=== PATIENT | male | born 1995 | race Caucasian/White ===

== ENCOUNTER 2021-01-03 21:03 | Emergency (ER) | payer OTHER ==
[~2021-01-03] VITALS: Ht 172.7 cm; Wt 84.2 kg
[2021-01-03 21:04] VITALS: BP 140/82
[2021-01-03 21:58] LABS: HEMATOCRIT 43.2 % (42.0-52.0); HEMOGLOBIN 14.4 g/dl (13.5-17.5); MEAN CORPUSCULAR HGB CONC 33.3 g/dl (32.0-36.5); PLATELET COUNT, AUTOMATED 186 10^3/uL (150-450); WHITE BLOOD COUNT 7.3 10^3/uL (4.0-10.0)
[2021-01-03 22:26] LABS: ALBUMIN 4.5 GM/DL (3.2-5.2); ALT/SGPT 66 U/L (12-78); BILIRUBIN,DIRECT < 0.1 MG/DL (0.0-0.2); BILIRUBIN,TOTAL 0.3 MG/DL (0.2-1.0); BLOOD UREA NITROGEN 12 MG/DL (7-18); CALCIUM LEVEL 9.1 MG/DL (8.5-10.1); CARBON DIOXIDE LEVEL 31 MEQ/L (21-32); CHLORIDE LEVEL 105 MEQ/L (98-107); CREATININE FOR GFR 0.98 MG/DL (0.70-1.30); GLOMERULAR FILTRATION RATE > 60.0 (>60); GLUCOSE, FASTING 99 MG/DL (70-100); LIPASE 149 U/L (73-393); POTASSIUM SERUM 4.3 MEQ/L (3.5-5.1); SODIUM LEVEL 139 MEQ/L (136-145); TOTAL PROTEIN 7.6 GM/DL (6.4-8.2)
[2021-01-03 22:41] LABS: ATYPICAL LYMPH 2 % (0-5); BASOPHILS 1 % (0-1); EOSINOPHILS 11 % (0-3); LYMPHOCYTES 34 % (16-44); MONOCYTES 5 % (0-5); NEUTROPHILS 47 % (28-66); PLATELET ESTIMATE NORMAL (NORMAL)
[2021-01-03] MEDS ORDERED: PROC1AER16 PR (23:06)
[2021-01-03 23:43] LABS: INR 0.93; PROTHROMBIN TIME 12.7 SECONDS (12.5-14.3)
--- NOTE | 2021-01-04 00:06 | REPVR ---
PROCEDURE INFORMATION: Exam: XR Complete Acute Abdomen Series Exam date and time: 01/03/2021 11:31 PM Age: 25 years old Clinical indication: Abdominal pain; Acute; Additional info: Gi bleed TECHNIQUE: Imaging protocol: XR complete acute abdomen series, including 2 or more views of the abdomen and a single view chest. COMPARISON: No relevant prior studies available. FINDINGS: Lungs: Normal. No consolidation. Pleural spaces: Normal. No pleural effusions. No pneumothorax. Heart/Mediastinum: Normal. No cardiomegaly. Gastrointestinal tract: Mild gas throughout the GI tract without abnormal dilatation. Gas extends to the rectosigmoid. No abnormal air-fluid levels. Intraperitoneal space: No free air. Bones/joints: Normal. No acute fracture. Soft tissues: Normal. IMPRESSION: 1. Negative chest. 2. Negative abdomen with mild gas which is within normal limits. Electronically signed by: Rey Hernandez On 01/04/2021 00:05:48 AM
== END 2021-01-04 00:03 | disposition home or self-care (01) ==
LOC: M ED 21:03
DX: K92.2 Gastrointestinal hemorrhage, unspecified (principal)

== ENCOUNTER 2021-02-09 15:11 | Emergency (ER) | payer OTHER ==
[~2021-02-09] VITALS: Ht 172.7 cm; Wt 85.3 kg
[~2021-02-09 15:11] MED LIST: PROC1AER16 PR
[2021-02-09 15:12] VITALS: BP 145/86
--- NOTE | 2021-02-09 15:49 | REP ---
INDICATION: constipation COMPARISON: None. TECHNIQUE: Supine view of the abdomen and pelvis. FINDINGS: Bowel gas pattern is nonspecific and without obstruction or perforation. No significant fecal stasis. No organomegaly. No abnormal calcifications. Skeletal structures intact. IMPRESSION: Normal abdominal radiograph. <Electronically signed by Tadeo Kenney > 02/09/21 [id number]
[2021-02-09 15:59] LABS: BASO # 0.1 10^3/uL (0.0-0.2); BASO % 1.3 % (0.0-1.0); EOS # 0.2 10^3/uL (0.0-0.5); EOS % 4.3 % (0.0-3.0); HEMATOCRIT 43.9 % (42.0-52.0); LYMPH % 37.2 % (24.0-44.0); MEAN CORPUSCULAR HEMOGLOBIN 30.2 pg (27.0-33.0); MEAN CORPUSCULAR HGB CONC 34.2 g/dl (32.0-36.5); MEAN CORPUSCULAR VOLUME 88.5 fl (80.0-96.0); MONO # 0.5 10^3/uL (0.0-0.8); MONO % 9.1 % (2.0-8.0); NEUTROPHILS # 2.6 10^3/uL (1.5-8.5); NEUTROPHILS % 47.9 % (36.0-66.0); PLATELET COUNT, AUTOMATED 208 10^3/uL (150-450); RED BLOOD COUNT 4.96 10^6/uL (4.30-6.10); WHITE BLOOD COUNT 5.4 10^3/uL (4.0-10.0)
[2021-02-09 16:29] LABS: ALBUMIN 4.6 GM/DL (3.2-5.2); ALT/SGPT 43 U/L (12-78); BILIRUBIN,TOTAL 0.4 MG/DL (0.2-1.0); BLOOD UREA NITROGEN 11 MG/DL (7-18); CALCIUM LEVEL 8.6 MG/DL (8.5-10.1); CARBON DIOXIDE LEVEL 28 MEQ/L (21-32); CHLORIDE LEVEL 107 MEQ/L (98-107); GLOMERULAR FILTRATION RATE > 60.0 (>60); GLUCOSE, FASTING 114 MG/DL (70-100); POTASSIUM SERUM 3.7 MEQ/L (3.5-5.1); SODIUM LEVEL 140 MEQ/L (136-145); TOTAL PROTEIN 7.4 GM/DL (6.4-8.2)
[2021-02-09] MEDS ORDERED: PROC1AER16 PR (16:34)
== END 2021-02-09 17:10 | disposition home or self-care (01) ==
LOC: M ED 15:11
DX: K64.8 Other hemorrhoids (principal); K64.4 Residual hemorrhoidal skin tags

== ENCOUNTER 2021-04-11 12:26 | Emergency (ER) | payer OTHER ==
[~2021-04-11] VITALS: Ht 172.7 cm; Wt 86.9 kg
[2021-04-11] MEDS ORDERED: FLUORESCEIN OPHTH 1 MG STRIP OS ONE (16:15)
[2021-04-11] MEDS ORDERED: TETRACAINE 0.5% OPHTH SOLN 4ML OS ONE (16:15)
[2021-04-11] MEDS ORDERED: KETOROLAC TROMETHAMINE 10 MG TAB PO ONE (16:30)
[2021-04-11] MEDS ORDERED: OCUF0.25 OS (16:31)
[2021-04-11 16:49] VITALS: BP 135/68
== END 2021-04-11 16:45 | disposition home or self-care (01) ==
LOC: M ED 12:26
DX: S05.02XA Injury of conjunctiva and corneal abrasion without foreign body, left eye, initial encounter (principal); X58.XXXA Exposure to other specified factors, initial encounter; Y92.9 Unspecified place or not applicable; Y93.9 Activity, unspecified; Y99.1 Military activity

== ENCOUNTER 2021-07-02 10:03 | Emergency (ER) | payer OTHER ==
[~2021-07-02] VITALS: Ht 172.7 cm; Wt 86.3 kg
[~2021-07-02 10:03] MED LIST changes: +OCUF0.25 OS
--- OUTSIDE RECORDS SUMMARY | 2021-07-02 10:08 | CCD ---
Author Author [facility] Address Unknown Phone Unavailable Care Team Providers Care Production Associate Name Role Phone Feli STOUT Unavailable Unavailable LETTIERE, A FARAZ PA Unavailable Unavailable LETTIERE, A FARAZ PA Unavailable Unavailable LETTIERE, A FARAZ PA Unavailable Unavailable LETTIERE, A FARAZ PA Unavailable Unavailable LETTIERE, A FARAZ PA Unavailable Unavailable LETTIERE, A FARAZ PA Unavailable Unavailable LETTIERE, A FARAZ PA Unavailable Unavailable LETTIERE, A FARAZ PA Unavailable Unavailable LETTIERE, A FARAZ PA Unavailable Unavailable LETTIERE, A FARAZ PA Unavailable Unavailable LETTIERE, A FARAZ PA Unavailable Unavailable LETTIERE, A FARAZ PA Unavailable Unavailable LETTIERE, A FARAZ PA Unavailable Unavailable LETTIERE, A FARAZ PA Unavailable Unavailable LETTIERE, A FARAZ PA Unavailable Unavailable LETTIERE, A FARAZ PA Unavailable Unavailable LETTIERE, A FARAZ PA Unavailable Unavailable LETTIERE, A FARAZ PA Unavailable Unavailable LETTIERE, A FARAZ PA Unavailable Unavailable LETTIERE, A FARAZ PA Unavailable Unavailable LETTIERE, A FARAZ PA Unavailable Unavailable LETTIERE, A FARAZ PA Unavailable Unavailable LETTIERE, A FARAZ PA Unavailable Unavailable LETTIERE, A FARAZ PA Unavailable Unavailable LETTIERE, A FARAZ PA Unavailable Unavailable LETTIERE, A FARAZ PA Unavailable Unavailable LETTIERE, A FARAZ PA Unavailable Unavailable LETTIERE, A AFRAZ PA Unavailable Unavailable LETTIERE, A FARAZ PA Unavailable Unavailable LETTIERE, A FARAZ PA Unavailable Unavailable LETTIERE, A FARAZ PA Unavailable Unavailable Feli DAMON MD Unavailable Unavailable Feli DAMON MD Unavailable Unavailable Feli DAMON MD Unavailable Unavailable Feli DAMON MD Unavailable Unavailable Feli DAMON MD Unavailable Unavailable Feli DAMON MD Unavailable Unavailable Feli DAMON MD Unavailable Unavailable ZULICK, C ESTELLE MD Unavailable Unavailable ZULICK, C ESTELLE MD Unavailable Unavailable ZULICK, C ESTELLE MD Unavailable Unavailable ZULICK, C ESTELLE MD Unavailable Unavailable ZULICK, C ESTELLE MD Unavailable Unavailable ZULICK, C ESTELLE MD Unavailable Unavailable ZULICK, C ESTELLE MD Unavailable Unavailable ZULICK, C ESTELLE MD Unavailable Unavailable ZULICK, C ESTELLE MD Unavailable Unavailable ZULICK, C ESTELLE MD Unavailable Unavailable ZULICK, C ESTELLE MD Unavailable Unavailable ZULICK, C ESTELLE MD Unavailable Unavailable ZULICK, C ESTELLE MD Unavailable Unavailable ZULICK, C ESTELLE MD Unavailable Unavailable ZULICK, C ESTELLE MD Unavailable Unavailable ZULICK, C ESTELLE MD Unavailable Unavailable ZULICK, C ESTELLE MD Unavailable Unavailable ZULICK, C ESTELLE MD Unavailable Unavailable ZULICK, C ESTELLE MD Unavailable Unavailable ZULICK, C ESTELLE MD Unavailable Unavailable ZULICK, C ESTELLE MD Unavailable Unavailable ZULICK, C ESTELLE MD Unavailable Unavailable ZULICK, C ESTELLE MD Unavailable Unavailable ZULICK, C ESTELLE MD Unavailable Unavailable ZULICK, C ESTELLE MD Unavailable Unavailable MIGUELITO, A WENDY MD Unavailable Unavailable MIGUELITO, A WENDY MD Unavailable Unavailable MIGUELITO, A WENDY MD Unavailable Unavailable MIGUELITO, A WENDY MD Unavailable Unavailable MIGUELITO, A WENDY MD Unavailable Unavailable MIGUELITO, A WENDY MD Unavailable Unavailable MIGUELITO, A WENDY MD Unavailable Unavailable MIGUELITO, A WENDY MD Unavailable Unavailable MIGUELITO, A WENDY MD Unavailable Unavailable MIGUELITO, A WENDY MD Unavailable Unavailable DAY, JORDAN Unavailable Unavailable Re-disclosure Warning The records that you are about to access may contain information from federally-assisted alcohol or drug abuse programs. If such information is present, then the following federally mandated warning applies: This information has been disclosed to you from records protected by federal confidentiality rules (42 CFR part 2). The federal rules prohibit you from making any further disclosure of this information unless further disclosure is expressly permitted by the written consent of the person to whom it pertains or as otherwise permitted by 42 CFR part 2. A general authorization for the release of medical or other information is NOT sufficient for this purpose. The Federal rules restrict any use of the information to criminally investigate or prosecute any alcohol or drug abuse patient.The records that you are about to access may contain highly sensitive health information, the redisclosure of which is protected by Article 27-F of the [facility] Public Health law. If you continue you may have access to information: Regarding HIV / AIDS; Provided by facilities licensed or operated by the [facility] Office of Mental Health; or Provided by the [facility] Office for People With Developmental Disabilities. If such information is present, then the following [facility] mandated warning applies: This information has been disclosed to you from confidential records which are protected by state law. State law prohibits you from making any further disclosure of this information without the specific written consent of the person to whom it pertains, or as otherwise permitted by law. Any unauthorized further disclosure in violation of state law may result in a fine or fdc sentence or both. A general authorization for the release of medical or other information is NOT sufficient authorization for further disc losure. Allergies and Adverse Reactions Type Description Substance Reaction Status Data Source(s ) No Known Drug Allergies No Known Drug Allergies [facility] No Known Environmental Allergies No Known Environmental Al lergies [facility] No Known Food Allergies No Known Food Allergies [facility] No Known Allergies No Known Allergies [facility] Encounters Encounter Providers Location Date Indications Data Source(s ) Outpatient Attender: JORDAN DAYConsultant: WENDY BECKHAM MD 06/26/2021 07:57:16 AM EST - 06/27/2021 05:50:00 AM [facility] Patient discharged. Outpatient Attender: RENATE Allenant: WENDY HSU MD 05/02/2021 07:52:27 AM EDT - 05/03/2021 09:26:00 AM EDT [facility] Patient discharged. Outpatient Attender: RENATE Allenant: WENDY HSU MD 05/01/2021 12:19:15 PM EDT - 05/02/2021 10:10:00 AM EDT [facility] Patient discharged. Outpatient Attender: ESTELLE DAMON MD 2020 09:49:00 AM EDT - 04/05/2021 09:49:00 AM T [facility] Office Visit Attender: ESTELLE DAMON MD Family Practice 2020 09:45:00 AM [facility] Outpatient Attender: FARAZ maria 03/23/2021 02:35:[address] [facility] ([facility]) Outpatient Attender: ESTELLE DAMON MDConsultant: WENDY COOMBS MD 03/17/2021 08:12:21 AM EDT - 03/20/2021 11:00:00 AM EDT [facility] Patient discharged. Outpatient Attender: ESTELLE DAMON MDConsultant: WENDY COOMBS MD 03/08/2021 06:57:47 AM EDT - 03/09/2021 04:04:00 PM EDT [facility] Patient discharged. Outpatient Attender: ESTELLE DAMON MD 2020 09:07:00 AM EDT - 02/24/2021 09:07:00 AM EDT [facility] Outpatient Attender: RENATE STOUTConsultant: WENDY HSU MD 11/29/2020 06:40:11 AM EDT - 11/30/2020 12:31:00 PM EDT [facility] Patient discharged. Outpatient Attender: RENATE Prasadltant: WENDY HSU MD 11/28/2020 07:16:29 AM EDT - 11/29/2020 08:43:00 AM EDT [facility] Patient discharged. Outpatient Attender: ESTELLE DAMON MD 2019 09:01:00 AM EDT - 05/20/2020 09:01:00 AM EDT [facility] Immunizations Vaccine Date Status Description Data Source(s) COVID-19 VACCINE Pfizer 11/10/2020 12:00:00 AM EDT completed [facility] Vaccine Series Complete: YESThis Data wa s Submitted to [facility] Via [employer]. COVID-19 VACCINE Pfizer 10/20/2020 12:00:00 AM EST completed [facility] Vaccine Series Complete: YESThis Data wa s Submitted to [facility] Via [employer]. Medications Medication Brand Name Start Date Product Form Dose Route Admi nistrative Instructions Pharmacy Instructions Status Indications Reaction Description Data Source(s) Triamcinolone Acetonide 1 MG/ML Topical Cream Triamcinolone Acetonide 03/23/2021 12:00:00 AM EDT active [facility] ([facility]) Doxycycline Monohydrate 100 MG Oral Capsule Doxycycline [place] hydrate 03/23/2021 12:00:00 AM EDT ORAL active [facility] ([facility]) No Active Medications 03/23/2021 12:00:00 AM EDT completed [facility] ([facility]) Docusate Sodium 100 MG Oral Capsule [Colace] Colace 12:00:00 AM EDT ORAL active [facility] ( [facility]) WHEAT DEXTRIN 3500 MG Oral Powder [Benefiber] Benefiber 02/24/2021 12:00:00 AM EDT active [facility] ([facility]) POLYETHYLENE GLYCOL 3350 142 MG/ML Oral Solution [Miralax] M iralax 02/24/2021 12:00:00 AM EDT active [facility] ([facility]) Bisacodyl 5 MG Delayed Release Oral Tablet [Dulcolax] Dulcol ax 02/24/2021 12:00:00 AM EDT active M [facility] ([facility]) Insurance Providers Payer name Policy type / Coverage type Policy ID Covered republican ID Covered republican's relationship to gibson Policy Gibson Plan Information [facility] ACTIVE DUTY [id number] [facility] [place] [id number] 18 [id number] [facility] [place] [id number] 18 [id number] [facility] [place] [id number] [id number] [facility] [place] -[place]/P [id number] [id number] [facility] [place] [id number] 18 [id number] [facility] [place] [id number] 18 [id number] [facility] Commercial [id number] Self [id number] Problems, Conditions, and Diagnoses Code Display Name Description Problem Type Effective Dates Data Source(s) N28297 Bunion of left foot Bunion of left foot Diagnosis 0 05/03/2021 06:30:00 AM [facility] [id number] Pain in left foot Pain in left foot Diagnosis 05/02/2021 09:40:00 AM [facility] Z800 Family history of malignant neoplasm of digestive organs Family history of malignant neoplasm of digestive organs Diagnosis 03/20/2021 08:45:00 A M [facility] K625 Hemorrhage of anus and rectum Hemorrhage of anus and r ectum Diagnosis 03/20/2021 08:45:00 AM [facility] K5900 Constipation, unspecified Constipation, unspecified Di agnosis 03/20/2021 08:45:00 AM [facility] K648 Other hemorrhoids Other hemorrhoids Diagnosis 03/20/2021 08:45:00 AM [facility] S00837 Encounter for other preprocedural examin ation Encounter for other preprocedural examination Diagnosis 03/09/2021 03:35:[address] [facility] D13075 Nicotine dependence, unspecified, uncomp licated Nicotine dependence, unspecified, uncomplicated Diagnosis 11/30/2020 08:00:00 AM [facility] M2041 Other hammer toe(s) (acquired), right fo ot Other hammer toe(s) (acquired), right foot Diagnosis 11/30/2020 08:00:00 AM [facility] T20083 Bunionette of right foot Bunionette of right foot Diag nosis 11/30/2020 08:00:00 AM [facility] [id number] Bunion of right foot Bunion of right foot Diagnosis 11/30/2020 08:00:00 AM [facility] Z1152 ENCOUNTER FOR SCREENING FOR COVID-19 ENCOUNTER F OR SCREENING FOR COVID-19 Diagnosis 11/29/2020 07:18:00 AM [facility] N62 Hypertrophy of breast Hypertrophy of breast Diagnosis 05/20/2020 09:01:00 AM [facility] Surgeries/Procedures Procedure Description Date Indications Data Source(s) OFFICE OUTPATIENT NEW 30 MINUTES 03/23/2021 12:00:00 A M [facility]) OFFICE OUTPATIENT VISIT 15 MINUTES 02/24/2021 12:00:00 AM EDT [facility] ([facility]) Results ID Date Data Source [id number] 06/21/2021 09:35:00 AM EST [facility] Name Value Range Interpretation Code Description Data Jillian rce(s) Supporting Document(s) SARS coronavirus 2 RNA Not Detected [facility] [place] This lab was ordered by [facility] and reported by [facility]. ID Date Data Source [id number] 03/15/2021 11:13:00 AM EDT [facility] Name Value Range Interpretation Code Description Data Jillian rce(s) Supporting Document(s) SARS coronavirus 2 RNA Not Detected [facility] [place] This lab was ordered by [facility] and reported by [facility]. ID Date Data Source [id number] 05/21/2020 08:26:00 PM EDT [facility] Name Value Range Interpretation Code Description Data Jillian rce(s) Supporting Document(s) Testosterone [Mass/volume] in Serum or Plasma 418 ng/dL [id number] [facility] Adult male reference interval is based o n a population ofhealthy nonobese males (BMI <30) between 19 and 39 years old.Margarita, et.al. JCEM 2017,102;8765-4131. PMID: [id number]. Testosterone Free [Mass/volume] in Serum or Plasma 18.0 pg/mL 9.3-26. 5 [facility] ID Date Data Source [id number] 05/21/2020 08:15:00 PM EDT [facility] Name Value Range Interpretation Code Description Data Jillian rce(s) Supporting Document(s) Choriogonadotropin.intact+Beta subunit [Units/volume] in Serum or Plasma <1 mIU/mL 0-3 [facility] Jez ECLIA methodology ID Date Data Source [id number] 05/21/2020 08:14:00 PM EDT [facility] Name Value Range Interpretation Code Description Data Jillian rce(s) Supporting Document(s) Lutropin [Units/volume] in Serum or Plasma 2.9 mIU/mL 1.7-8.6 [facility] ID Date Data Source [id number] 05/21/2020 08:14:00 PM EDT [facility] Name Value Range Interpretation Code Description Data Jillian rce(s) Supporting Document(s) Estradiol (E2) [Mass/volume] in Serum or Plasma 27.2 pg/mL 7.6-42.6 [facility] Jez ECLIA methodology Procedure Social History Code Duration Value Status Description Data Source(s ) Smoking 03/23/2021 12:00:00 AM EDT Patient has never smoked co mpleted Patient has never smoked [facility] ([facility]) Vital Signs ID Date Data Source UNK Name Value Range Interpretation Code Description Data Source(s) Systolic blood pressure 119 mm[Hg] 119 mm[Hg] M [facility] ([facility]) Diastolic blood pressure 80 mm[Hg] 80 mm[Hg] [facility] ([facility]) Heart rate 88 /min 88 /min [facility] ([facility]) Respiratory rate 14 /min 14 /min [facility] Oxygen saturation in Arterial blood by Pulse oximetry 98 % 98 % [facility] Body temperature 97.6 [degF] 97.6 [degF] [facility] ([facility]) Body weight 175.00 [lb_av] 175.00 [lb_av] [facility] T ([facility], [facility]) Body height 68 [in_i] 68 [in_i] [facility] ([facility]) 5'8" Body mass index (BMI) [Ratio] 26.6 kg/m2 26.6 k g/m2 [facility] ([facility]) Systolic blood pressure 146 mm[Hg] 146 mm[Hg] M [facility] ([facility]) Diastolic blood pressure 93 mm[Hg] 93 mm[Hg] [facility] ([facility]) Heart rate 68 /min 68 /min [facility] Body temperature 98.3 [degF] 98.3 [degF] [facility] ([facility]) Respiratory rate 14 /min 14 /min [facility] ( [facility]) Oxygen saturation in Arterial blood by Pulse oximetry 99 % 99 % [facility] ([facility]) Body weight 185.12 [lb_av] 185.12 [lb_av] [facility] T ([facility]) Body weight 83.973 kg 83.973 kg [facility] ([facility]) Body height 68 [in_i] 68 [in_i] [facility] ([facility]) 5'8" Body mass index (BMI) [Ratio] 28.1 kg/m2 28.1 k g/m2 [facility] ([facility]) Body surface area Derived from formula 1.98 m[facility] 1.98 [facility] Body weight 77.112 kg 77.112 kg [facility] ([facility]) Body height 68 [in_i] 68 [in_i] [facility] ([facility]) 5'8" Heart rate 76 /min 76 /min [facility] ([facility]) Respiratory rate 16 /min 16 /min [facility] ( [facility]) Body temperature 97.8 [degF] 97.8 [degF] [facility] ([facility]) Systolic blood pressure 119 mm[Hg] 119 mm[Hg] M [facility] ([facility]) Diastolic blood pressure 76 mm[Hg] 76 mm[Hg] [facility] ([facility]) Body weight 170.00 [lb_av] 170.00 [lb_av] [facility] T ([facility]) Body mass index (BMI) [Ratio] 25.8 kg/m2 25.8 k g/m2 [facility] ([facility]) Body surface area Derived from formula 1.[address] [facility] ([facility]) ID Date Data Source [id number] 05/10/2021 10:27:47 AM EDT [facility] Name Value Range Interpretation Code Description Data Source(s) WEIGHT RECORDED 175.00 pounds 175.00 pounds [facility] Height 68 Inches 068 Inches [facility] ID Date Data Source [id number] 05/03/2021 06:43:36 AM EDT [facility] Name Value Range Interpretation Code Description Data Source(s) WEIGHT RECORDED 175.00 pounds 175.00 pounds [facility] Height 68 Inches 068 Inches [facility] ID Date Data Source [id number] 12/02/2020 03:04:42 PM EDT [facility] Name Value Range Interpretation Code Description Data Source(s) WEIGHT RECORDED 170.00 pounds 170.00 pounds [facility] Height 68 Inches 068 Inches [facility]
--- OUTSIDE RECORDS SUMMARY | 2021-07-02 10:08 | CCD | Continuity of Care Document ---
Author Author Alexis DAMON MD Organization Unknown Address [address] [place] [address] Phone [phone] Care Team Providers Care Machine Gun Mechanic Name Role Phone Usa Meddac, Sal [facility] AUTM Unavailable Problems Description No Information Available Social History Type Date Description Comments Sex Unknown Tobacco Use Start: Unknown Never Smoked Cigarettes Tobacco Use Start: Unknown Never Smoked Cigars Tobacco Use Start: Unknown Never Smoked A Pipe Tobacco Use Start: Unknown Never Used Smokeless Tobacco ETOH Use Denies alcohol use Tobacco Use Start: Unknown Patient has never smoked Recreational Drug Use Denies Drug Use Allergies, Adverse Reactions, Alerts Active Allergies Criticality Reaction | Severity Comments Date NKDA Unable to assess criticality 05/07/2017 NKEA Unable to assess criticality 05/07/2017 NKFA Unable to assess criticality 05/07/2017 Medications Active Medications SIG Qnty Indications Ordering Provide r Date Dulcolax 5mg Tablets DR see preprocedure instructions 4tabs Nabeel Damon MD 02/24/2021 Miralax 17GM/Scoop Powder see preprocedure instructions. 238gm Nabeel Damon MD 02/24/2021 Benefiber Powder As per instructions. Take with at least 16 ounces of water. 350gm Nabeel vidal MD 02/24/2021 Colace 100mg Capsules 100 mg by mouth twice a day 60caps Nabeel Damon MD 02/24/2021 Immunizations Description No Information Available Vital Signs Date Vital Result Comment 02/24/2021 9:15am BP Systolic 146 mmHg BP Diastolic 93 mmHg Heart Rate 68 /min Body Temperature 98.3 F Respiratory Rate 14 /min O2 % BldC Oximetry 99 % Weight 185.12 lb Weight 83.973 kg Height 68 inches 5'8" BMI (Body Mass Index) 28.1 kg/m2 BSA (Body Surface Area) 1.98 m2 05/20/2020 9:09am BP Systolic 119 mmHg BP Diastolic 76 mmHg Heart Rate 76 /min Body Temperature 97.8 F Respiratory Rate 16 /min Weight 170.00 lb Weight 77.112 kg Height 68 inches 5'8" BMI (Body Mass Index) 25.8 kg/m2 BSA (Body Surface Area) 1.91 m2 Results Description No Information Available Procedures Date Code Description Status 02/24/2021 00032 Office/Outpatient Established Lo w MDM 20-29 Min Completed Medical Devices Description No Information Available Encounters Type Date Location Provider Dx Diagnosis Office Visit 04/05/2021 9:45a [facility] Nabeel Damon MD K 64.1 Second degree hemorrhoids Z12.11 Encounter for screening for malignant neoplasm of colon Assessments Date Code Description Provider 04/05/2021 K64.1 Second degree hemorrhoids Nabeel Damon MD 04/05/2021 Z12.11 Encounter for screening for aster gnant neoplasm of colon Nabeel Damon MD 02/24/2021 K64.9 Unspecified hemorrhoids Nabeel Valente MD 02/24/2021 K62.5 Hemorrhage of anus and rectum Norma Damon MD Plan of Treatment 04/05/2021 - Nabeel Damon MD* K64.1 Second degree hemorrhoids * Z12.11 Encounter for screening for malignant neoplasm of colon* Comments:* Given his family history, consider repeat colonoscopy in 10 years. Functional Status Description No Information Available Mental Status Description No Information Available Referrals Description No Information Available
--- OUTSIDE RECORDS SUMMARY | 2021-07-02 10:08 | CCD | Continuity of Care Document ---
Author Author Alexis DAMON MD Organization Unknown Address [address] [place] [address] Phone [phone] Care Team Providers Care Soil Fertility Extension Specialist Name Role Phone Usa Meddac, Sal [facility] AUTM Unavailable Problems Description No Information Available [...] Available Procedures Date Code Description Status 02/24/2021 74517 Office/Outpatient Established Lo w MDM 20-29 Min Completed Medical Devices Description No Information Available Encounters Type Date Location Provider Dx Diagnosis Office Visit 04/05/2021 9:45a [facility] Nabeel Damon MD K [...]
--- OUTSIDE RECORDS SUMMARY | 2021-07-02 10:08 | CCD | Continuity of Care Document ---
Author Author Alexis DAMON MD Organization Unknown Address [address] [place] [address] Phone [phone] Care Team Providers Care Foreign Correspondent Name Role Phone Usa Meddac, Sal [facility] AUTM Unavailable Problems Description No Information [...] Available Procedures Date Code Description Status 02/24/2021 33602 Office/Outpatient Established Lo w MDM 20-29 Min Completed Medical Devices Description No Information Available Encounters Type Date Location Provider Dx Diagnosis Office Visit 04/05/2021 9:45a [facility] Nabeel Damon MD K [...]
[2021-07-02] MEDS ORDERED: AUGM875T28 PO (10:37)
[2021-07-02] MEDS ORDERED: RABIES VACCINE HUMAN 2.5 INTERNATIONAL UNITS/ML VIAL (90675) IM ONE (10:45)
[2021-07-02] MEDS ORDERED: RABIES IMMUNE GLOBULIN 1500 INTERNATIONAL UNIT/5ML VIAL (90375) IM ONE ×2 (10:45→12:00)
--- OUTSIDE RECORDS SUMMARY | 2021-07-02 11:05 | CCD ---
Author Author [facility] Address Unknown Phone Unavailable Care Team Providers Care Quill Skinner Name Role Phone Feli STOUT Unavailable Unavailable [...] is protected by Article 27-F of the [facility] Public Health law. If you continue you may have access to information: Regarding HIV / AIDS; Provided by facilities licensed or operated by the [facility] Office of Mental Health; or Provided by the [facility] Office for People With Developmental Disabilities. If such information is present, then the following [facility] mandated warning applies: This information has [...] law may result in a fine or long term sentence or both. A general authorization for the release of medical or other information is NOT sufficient authorization for further disc losure. Allergies and Adverse Reactions Type Description Substance Reaction Status Data Source(s ) No Known Drug Allergies No Known Drug Allergies [facility] No Known Environmental Allergies No Known Environmental Al lergies [facility] No Known Food Allergies No Known Food Allergies [facility] No Known Allergies No Known Allergies [facility] Encounters Encounter Providers Location Date Indications Data Source(s ) Outpatient Attender: JORDAN DAYConsultant: WENDY BECKHAM MD 06/26/2021 07:57:16 AM EST - 06/27/2021 05:50:00 AM [facility] Patient discharged. Outpatient Attender: RENATE Allenant: WENDY HSU MD 05/02/2021 07:52:27 AM EDT - 05/03/2021 09:26:00 AM EDT [facility] Patient discharged. Outpatient Attender: RENATE Allenant: WENDY HSU MD 05/01/2021 12:19:15 PM EDT - 05/02/2021 10:10:00 AM EDT [facility] Patient discharged. Outpatient Attender: ESTELLE DAMON MD 2020 09:49:00 AM EDT - 04/05/2021 09:49:00 AM T [facility] Office Visit Attender: ESTELLE DAMON MD Family Practice 2020 09:45:00 AM EDT [facility] Outpatient Attender: FARAZ maria 03/23/2021 02:35:00 PM EDT [facility] ([facility], [facility]) Outpatient Attender: ESTELLE DAMON MDConsultant: WENDY COOMBS MD 03/17/2021 08:12:21 AM EDT - 03/20/2021 11:00:00 AM EDT [facility] Patient discharged. Outpatient Attender: ESTELLE DAMON MDConsultant: WENDY COOMBS MD 03/08/2021 06:57:47 AM EDT - 03/09/2021 04:04:00 PM EDT [facility] Patient discharged. Outpatient Attender: ESTELLE DAMON MD 2020 09:07:00 AM EDT - 02/24/2021 09:07:00 AM EDT [facility] Outpatient Attender: RENATE STOUTConsultant: WENDY HSU MD 11/29/2020 06:40:11 AM EDT - 11/30/2020 12:31:00 PM EDT [facility] Patient discharged. Outpatient Attender: RENATE Prasadltant: WENDY HSU MD 11/28/2020 07:16:29 AM EDT - 11/29/2020 08:43:00 AM EDT [facility] Patient discharged. Outpatient Attender: ESTELLE DAMON MD 2019 09:01:00 AM EDT - 05/20/2020 09:01:00 AM EDT [facility] Immunizations Vaccine Date Status Description Data Source(s) COVID-19 VACCINE Pfizer 11/10/2020 12:00:00 AM EDT completed [facility] Vaccine Series Complete: YESThis Data wa s Submitted to [facility] Via [email or web address]. COVID-19 VACCINE Pfizer 10/20/2020 12:00:00 AM EST completed [facility] Vaccine Series Complete: YESThis Data wa s Submitted to [facility] Via [email or web address]. Medications Medication Brand Name Start Date Product Form Dose Route Admi nistrative Instructions Pharmacy Instructions Status Indications Reaction Description Data Source(s) Triamcinolone Acetonide 1 MG/ML Topical Cream Triamcinolone Acetonide 03/23/2021 12:00:00 AM EDT active [facility] ([facility]) Doxycycline Monohydrate 100 MG Oral Capsule Doxycycline Gordon hydrate 03/23/2021 12:00:00 AM EDT ORAL active [facility] ([facility]) No Active Medications 03/23/2021 12:00:00 AM EDT completed [facility] ([facility]) Docusate Sodium 100 MG Oral Capsule [Colace] Colace 12:00:00 AM EDT ORAL active [facility] ( [facility]) WHEAT DEXTRIN 3500 MG Oral Powder [Benefiber] Benefiber 02/24/2021 12:00:00 AM EDT active [facility] ([facility]) POLYETHYLENE GLYCOL 3350 142 MG/ML Oral Solution [Miralax] M iralax 02/24/2021 12:00:00 AM EDT active [facility] ([facility]) Bisacodyl 5 MG Delayed Release Oral Tablet [Dulcolax] Dulcol ax 02/24/2021 12:00:00 AM EDT active [facility] ([facility]) Insurance Providers Payer name Policy type / Coverage type Policy ID Covered republican ID Covered republican's relationship to gibson Policy [place] Plan Information [facility] [id number] 16 [id number] [facility] [employer] [employer] [id number] SP [id number] [facility] [employer] [facility] [id number] 18 [id number] [facility] [place] [id number] [id number] [facility] [place] [id number] 18 [id number] [facility] CLAIMS [place] -O/P [id number] 18 [id number] [facility] [place] [id number] 18 [id number] [facility] [place] [id number] 18 [id number] [facility] Commercial [id number] Self [id number] Problems, Conditions, and Diagnoses Code Display Name Description Problem Type Effective Dates Data Source(s) P22004 Bunion of left foot Bunion of left foot Diagnosis 0 05/03/2021 06:30:00 AM EDT [facility] [id number] Pain in left foot Pain in left foot Diagnosis 05/02/2021 09:40:00 AM EDT [facility] Z800 Family history of malignant neoplasm of digestive organs Family history of malignant neoplasm of digestive organs Diagnosis 03/20[facility]21 08[facility]45[facility] Hemorrhage of anus and rectum Hemorrhage of anus and r ectum Diagnosis 03/20/2021 08:45:00 AM EDT [facility] K5900 Constipation, unspecified Constipation, unspecified Di agnosis 03/20/2021 08:45:00 AM EDT [facility] K648 Other hemorrhoids Other hemorrhoids Diagnosis 03/20/2021 08:45:00 AM T [facility] [id number] Encounter for other preprocedural examin ation Encounter for other preprocedural examination Diagnosis 03/09/2021 03:35:00 PM EDT [facility] [id number] Nicotine dependence, unspecified, uncomp licated Nicotine dependence, unspecified, uncomplicated Diagnosis 11/30/2020 08:00:00 AM EDT [facility] M2041 Other hammer toe(s) (acquired), right fo ot Other hammer toe(s) (acquired), right foot Diagnosis 11/30/2020 08:00:00 AM [facility] [id number] Bunionette of right foot Bunionette of right foot Diag nosis 11/30/2020 08:00:00 AM [facility] R06467 Bunion of right foot Bunion of right foot Diagnosis 11/30/2020 08:00:00 AM [facility] Z1152 ENCOUNTER FOR SCREENING FOR COVID-19 ENCOUNTER F OR SCREENING FOR COVID-19 Diagnosis 11/29/2020 07:18:00 AM T [facility] N62 Hypertrophy of breast Hypertrophy of breast Diagnosis 05/20/2020 09:01:00 AM [facility] Surgeries/Procedures Procedure Description Date Indications Data Source(s) OFFICE OUTPATIENT NEW 30 MINUTES 03/23/2021 12:[facility] OFFICE OUTPATIENT VISIT 15 MINUTES 02/24/2021 12:00:00 AM EDT [facility] ([facility]) Results ID Date Data Source [id number] 06/21/2021 09:35:00 AM EST [facility] Name Value Range Interpretation Code Description Data Jillian rce(s) Supporting Document(s) SARS coronavirus 2 RNA Not Detected [facility] [place] This lab was ordered by [facility] and reported by [facility]. ID Date Data Source [id number] 03/15/2021 11:13:00 AM EDT [facility] Name Value Range Interpretation Code Description Data Jillian rce(s) Supporting Document(s) SARS coronavirus 2 RNA Not Detected [facility] [place] This lab was ordered by [facility] and reported by [facility]. ID Date Data Source [id number] 05/21/2020 08:26:00 PM EDT [facility] Name Value Range Interpretation Code Description Data Jillian rce(s) Supporting Document(s) Testosterone [Mass/volume] in Serum or Plasma 418 ng/dL [id number] [facility] Adult male reference interval is based o n a population ofhealthy nonobese males (BMI <30) between 19 and 39 years old.Margarita, et.al. JCEM 2017,102;7108-7581. PMID: [id number]. Testosterone Free [Mass/volume] in Serum or Plasma 18.0 pg/mL 9.3-26. 5 [facility] ID Date Data Source [id number] 05/21/2020 08:15:00 PM EDT [facility] Name Value Range Interpretation Code Description Data Jillian rce(s) Supporting Document(s) Choriogonadotropin.intact+Beta subunit [Units/volume] in Serum or Plasma <1 mIU/mL 0-3 [facility] Jez ECLIA methodology ID Date Data Source [id number] 05/21/2020 08:14:00 PM EDT [facility] Value Range Interpretation Code Description Data Jillian rce(s) Supporting Document(s) Lutropin [Units/volume] in Serum or Plasma 2.9 mIU/mL 1.7-8.6 [facility] ID Date Data Source [id number] 05/21/2020 08:14:00 PM EDT [facility] Name Value Range Interpretation Code Description Data Jillian rce(s) Supporting Document(s) Estradiol (E2) [Mass/volume] in Serum or Plasma 27.2 pg/mL 7.6-42.6 [facility] Jez ECLIA methodology Procedure Social History Code Duration Value Status Description Data Source(s ) Smoking 03/23/2021 12:00:00 AM EDT Patient has never smoked co mpleted Patient has never smoked [facility] ([facility]) Vital Signs ID Date Data Source UNK Name Value Range Interpretation Code Description Data Source(s) Systolic blood pressure 119 mm[Hg] 119 mm[Hg] [facility] ([facility]) Diastolic blood pressure 80 mm[Hg] 80 mm[Hg] [facility] ([facility]) Heart rate 88 /min 88 /min [facility] ([facility], [facility]) Respiratory rate 14 /min 14 /min [facility] ( [facility]) Oxygen saturation in Arterial blood by Pulse oximetry 98 % 98 % [facility] ([facility]) Body temperature 97.6 [degF] 97.6 [degF] [facility] ([facility]) Body weight 175.00 [lb_av] 175.00 [lb_av] [facility] ([facility]) Body height 68 [in_i] 68 [in_i] [facility] ([facility]) 5'8" Body mass index (BMI) [Ratio] 26.6 kg/m2 26.6 k g/m2 [facility] ([facility]) Systolic blood pressure 146 mm[Hg] 146 mm[Hg] [facility] ([facility]) Body height 68 [in_i] 68 [in_i] [facility] ([facility]) 5'8" Body mass index (BMI) [Ratio] 28.1 kg/m2 28.1 k g/m2 [facility] ([facility]) Body surface area Derived from formula 1.98 m2 1.98 m2 [facility] ([facility]) Diastolic blood pressure 93 mm[Hg] 93 mm[Hg] [facility] ([facility]) Heart rate 68 /min 68 /min [facility] ([facility]) Body temperature 98.3 [degF] 98.3 [degF] [facility] ([facility]) Respiratory rate 14 /min 14 /min [facility] ( [facility]) Oxygen saturation in Arterial blood by Pulse oximetry 99 % 99 % [facility] ([facility]) Body weight 185.12 [lb_av] 185.12 [lb_av] [facility] T ([facility]) Body weight 83.973 kg 83.973 kg [facility] ([facility]) Body temperature 97.8 [degF] 97.8 [degF] [facility] ([facility]) Body weight 77.112 kg 77.112 kg [facility] ([facility]) Body height 68 [in_i] 68 [in_i] [facility] ([facility]) 5'8" Heart rate 76 /min 76 /min [facility] ([facility]) Respiratory rate 16 /min 16 /min [facility] ( [facility]) Systolic blood pressure 119 mm[Hg] 119 mm[Hg] M [facility] ([facility]) Diastolic blood pressure 76 mm[Hg] 76 mm[Hg] [facility] ([facility]) Body weight 170.00 [lb_av] 170.00 [lb_av] [facility] T ([facility]) Body mass index (BMI) [Ratio] 25.8 kg/m2 25.8 k g/m2 [facility] ([facility]) Body surface area Derived from formula 1.91 m2 1.91 m2 [facility] ([facility]) ID Date Data Source [id number] 05/10/2021 10:27:47 AM EDT [facility] Name Value Range Interpretation Code Description Data Source(s) WEIGHT RECORDED 175.[address] [facility] Height 68 Inches 068 Inches [facility] ID Date Data Source [id number] 05/03/2021 06:43:36 AM EDT [facility] Name Value Range Interpretation Code Description Data Source(s) WEIGHT RECORDED 175.[address] [facility] Height 68 Inches 068 Inches [facility] ID Date Data Source [id number] 12/02/2020 03:04:42 PM EDT [facility] Name Value Range Interpretation Code Description Data Source(s) WEIGHT RECORDED 170.[address] [facility] Height 68 Inches 068 Inches [facility]
[2021-07-02] MEDS ORDERED: RABIES IMMUNE GLOBULIN 300 INTERNATIONAL UNITS/1ML VIAL (90375) IM ONE (12:00)
[2021-07-02 12:37] VITALS: BP 162/82
[2021-07-03] MEDS ORDERED: AUGM875T28 PO (23:14)
[2021-07-03] MEDS ORDERED: IBUP-1764 PO (23:14)
== END 2021-07-02 12:40 | disposition home or self-care (01) ==
LOC: M ED 10:03
DX: S61.451A Open bite of right hand, initial encounter (principal); W55.01XA Bitten by cat, initial encounter; Y92.009 Unspecified place in unspecified non-institutional (private) residence as the place of occurrence of the external cause; Y93.9 Activity, unspecified; Y99.9 Unspecified external cause status; Z79.899 Other long term (current) drug therapy

== ENCOUNTER 2021-07-03 12:59 | Inpatient (IN) | payer OTHER ==
[~2021-07-03] VITALS: Ht 172.7 cm; Wt 88.2 kg
[~2021-07-03 12:59] MED LIST changes: +AUGM875T28 PO
[2021-07-03] MEDS ORDERED: KETOROLAC 30 MG/ML 1ML VIAL IV ONE (19:10)
[2021-07-03] MEDS ORDERED: AMPICILLIN SOD/SULBACTAM SOD 3 GM in D5W MINI-BAG PLUS 100 ML IV ONE (19:10)
[2021-07-03 20:38] LABS: BLOOD UREA NITROGEN 8 MG/DL (7-18); C REACTIVE PROTEIN QUANTITATIV 1.49 MG/DL (0.00-0.30); CALCIUM LEVEL 9.5 MG/DL (8.5-10.1); CARBON DIOXIDE LEVEL 29 MEQ/L (21-32); CHLORIDE LEVEL 104 MEQ/L (98-107); CREATININE FOR GFR 1.06 MG/DL (0.70-1.30); GLOMERULAR FILTRATION RATE > 60.0 (>60); GLUCOSE, FASTING 98 MG/DL (70-100); POTASSIUM SERUM 4.5 MEQ/L (3.5-5.1); SODIUM LEVEL 139 MEQ/L (136-145)
[2021-07-03 21:29] LABS: BASO # 0.1 10^3/uL (0.0-0.2); BASO % 0.8 % (0.0-1.0); EOS # 0.3 10^3/uL (0.0-0.5); EOS % 3.2 % (0.0-3.0); HEMATOCRIT 42.6 % (42.0-52.0); HEMOGLOBIN 14.6 g/dl (13.5-17.5); LYMPH # 2.1 10^3/uL (1.5-5.0); LYMPH % 27.4 % (24.0-44.0); MEAN CORPUSCULAR HEMOGLOBIN 30.4 pg (27.0-33.0); MEAN CORPUSCULAR HGB CONC 34.3 g/dl (32.0-36.5); MEAN CORPUSCULAR VOLUME 88.6 fl (80.0-96.0); MONO # 0.6 10^3/uL (0.0-0.8); MONO % 8.1 % (2.0-8.0); NEUTROPHILS # 4.7 10^3/uL (1.5-8.5); NEUTROPHILS % 60.2 % (36.0-66.0); PLATELET COUNT, AUTOMATED 196 10^3/uL (150-450); RED BLOOD COUNT 4.81 10^6/uL (4.30-6.10); WHITE BLOOD COUNT 7.8 10^3/uL (4.0-10.0)
[2021-07-03] MEDS ORDERED: NS 1,000 ML IV SCH (21:55)
[2021-07-03 21:57] LABS: ERYTHROCYTE SEDIMENTATION RATE 6 mm/hr (0-15)
[2021-07-03] MEDS ORDERED: ACETAMINOPHEN TAB 650MG DOSE (2X325MG) PO PRN (22:45)
[2021-07-03] MEDS ORDERED: ONDANSETRON 4MG/2ML VIAL IV PRN (22:55)
[2021-07-03] MEDS ORDERED: MORPHINE 2 MG/ML 1ML VIAL (J2270) IV PRN (22:55)
[2021-07-03] MEDS ORDERED: PERCOCET 5MG/325MG TAB PO PRN (22:55)
[2021-07-03] MEDS ORDERED: IBUP-1764 PO (23:14)
[2021-07-03] MEDS ORDERED: AUGM875T28 PO (23:14)
[2021-07-03] MEDS ORDERED: HOME MED LIST COMPLETE! XX SCH (23:15)
[2021-07-04 00:57] VITALS: BP 116/72
[2021-07-04] MEDS: AMPICILLIN SOD/SULBACTAM SOD 3 GM in D5W MINI-BAG PLUS 100 ML IV SCH ×2 (01:38→06:48)
[2021-07-04] MEDS: NS 1,000 ML IV SCH ×2 (01:38→09:07)
[2021-07-04 02:00] VITALS: BP 120/70
[2021-07-04] MEDS ORDERED: KETOROLAC 30 MG/ML 1ML VIAL IV PRN (02:00)
[2021-07-04 04:00] VITALS: BP 120/70
[2021-07-04 06:00] VITALS: BP 118/68
[2021-07-04 06:49] LABS: BASO # 0.1 10^3/uL (0.0-0.2); EOS # 0.3 10^3/uL (0.0-0.5); HEMOGLOBIN 13.8 g/dl (13.5-17.5); LYMPH # 2.1 10^3/uL (1.5-5.0); MEAN CORPUSCULAR HEMOGLOBIN 30.1 pg (27.0-33.0); MEAN CORPUSCULAR HGB CONC 33.7 g/dl (32.0-36.5); MEAN CORPUSCULAR VOLUME 89.3 fl (80.0-96.0); MONO # 0.6 10^3/uL (0.0-0.8); MONO % 8.8 % (2.0-8.0); NEUTROPHILS # 3.7 10^3/uL (1.5-8.5); NEUTROPHILS % 54.9 % (36.0-66.0); PLATELET COUNT, AUTOMATED 192 10^3/uL (150-450); RED BLOOD COUNT 4.59 10^6/uL (4.30-6.10); WHITE BLOOD COUNT 6.7 10^3/uL (4.0-10.0)
[2021-07-04 07:09] LABS: ERYTHROCYTE SEDIMENTATION RATE 5 mm/hr (0-15)
[2021-07-04 07:15] LABS: BLOOD UREA NITROGEN 11 MG/DL (7-18); C REACTIVE PROTEIN QUANTITATIV 1.21 MG/DL (0.00-0.30); CALCIUM LEVEL 8.5 MG/DL (8.5-10.1); CARBON DIOXIDE LEVEL 26 MEQ/L (21-32); CHLORIDE LEVEL 110 MEQ/L (98-107); CREATININE FOR GFR 1.01 MG/DL (0.70-1.30); GLOMERULAR FILTRATION RATE > 60.0 (>60); GLUCOSE, FASTING 101 MG/DL (70-100); POTASSIUM SERUM 4.1 MEQ/L (3.5-5.1); SODIUM LEVEL 141 MEQ/L (136-145)
[2021-07-04] MEDS ORDERED: LACTOBACILLUS ACIDOPHILUS CAP (BACID) PO SCH (09:00)
[2021-07-04] MEDS ORDERED: ACET1TAB55 PO (09:35)
[2021-07-04] MEDS ORDERED: RISATAB3 PO (09:35)
[2021-07-04] MEDS ORDERED: ONDA4TAB6 PO (09:35)
== END 2021-07-04 10:25 | disposition home or self-care (01) | DRG 605 ==
LOC: M ED 12:59 → M ED INP 22:41 → M MS5PR 07-04 01:00
PROVIDERS: ADMIT Internal Medicine; ATTEND Internal Medicine
DX: S61.451A Open bite of right hand, initial encounter (principal); L03.113 Cellulitis of right upper limb; W55.01XA Bitten by cat, initial encounter; Y92.009 Unspecified place in unspecified non-institutional (private) residence as the place of occurrence of the external cause

== ENCOUNTER 2021-07-05 07:17 | Emergency (ER) | payer OTHER ==
[~2021-07-05] VITALS: Ht 172.7 cm; Wt 86.8 kg
[~2021-07-05 07:17] MED LIST changes: +ACET1TAB55 PO; +IBUP-1764 PO; +ONDA4TAB6 PO; +RISATAB3 PO
--- OUTSIDE RECORDS SUMMARY | 2021-07-05 07:25 | CCD ---
Author Author [facility] Address Unknown Phone Unavailable Care Team Providers Care Home Agent Name Role Phone Feli STOUT Unavailable Unavailable [...] C ESTELLE MD Unavailable Unavailable ZULICK, C SETELLE MD Unavailable Unavailable ZULICK, C ESTELLE MD [...] is protected by Article 27-F of the [facility] Public Health law. If you continue you may have access to information: Regarding HIV / AIDS; Provided by facilities licensed or operated by the [facility] Office of Mental Health; or Provided by the [facility] Office for People With Developmental Disabilities. If such information is present, then the following [facility] mandated warning applies: This information has [...] law may result in a fine or penitentiary sentence or both. A general authorization for the release of medical or other information is NOT sufficient authorization for further disc losure. Allergies and Adverse Reactions Type Description Substance Reaction Status Data Source(s ) No Known Drug Allergies No Known Drug Allergies [facility] No Known Environmental Allergies No Known Environmental Al lergies [facility] No Known Food Allergies No Known Food Allergies [facility] No Known Allergies No Known Allergies [facility] Encounters Encounter Providers Location Date Indications Data Source(s ) Outpatient Attender: JORDAN DYAConsultant: WENDY BECKHAM MD 06/26/2021 07:57:16 AM EST - 06/27/2021 05:50:00 AM [facility] Patient discharged. Outpatient Attender: RENATE Allenant: WENDY HSU MD 05/02/2021 07:52:27 AM EDT - 05/03/2021 09:26:00 AM EDT [facility] Patient discharged. Outpatient Attender: RENATE Allenant: WENDY HSU MD 05/01/2021 12:19:15 PM EDT - 05/02/2021 10:10:00 AM EDT [facility] Patient discharged. Outpatient Attender: ESTELLE DAMON MD 2020 09:49:00 AM EDT - 04/05/2021 09:49:00 AM T [facility] Office Visit Attender: ESTELLE DAMON MD Family Practice 2020 09:45:00 AM EDT [facility] Outpatient Attender: FARAZ maria 03/23/2021 02:35:00 PM EDT [facility] ([facility], [facility]) Outpatient Attender: ESTELLE DAMON MDConsultant: WENDY COOMBS MD 03/17/2021 08:12:21 AM EDT - 03/20/2021 11:00:00 AM EDT [facility] Patient discharged. Outpatient Attender: ESTELLE DAMON MDConsultant: WENDY COOMBS MD 03/08/2021 06:57:47 AM EDT - 03/09/2021 04:04:00 PM EDT [facility] Patient discharged. Outpatient Attender: ESTELLE DAMON MD 2020 09:07:00 AM EDT - 02/24/2021 09:07:00 AM EDT [facility] Outpatient Attender: RENATE STOUTConsultant: WENDY HSU MD 11/29/2020 06:40:11 AM EDT - 11/30/2020 12:31:00 PM EDT [facility] Patient discharged. Outpatient Attender: RENATE Prasadltant: WENDY HSU MD 11/28/2020 07:16:29 AM EDT - 11/29/2020 08:43:00 AM EDT [facility] Patient discharged. Outpatient Attender: ESTELLE DAMON MD 2019 09:01:00 AM EDT - 05/20/2020 09:01:00 AM EDT [facility] Immunizations Vaccine Date Status Description Data Source(s) COVID-19 VACCINE Pfizer 11/10/2020 12:00:00 AM EDT completed [facility] Vaccine Series Complete: YESThis Data wa s Submitted to [facility]. COVID-19 VACCINE Pfizer 10/20/2020 12:00:00 AM EST completed [facility] Vaccine Series Complete: YESThis Data wa s Submitted to [facility] [employer]. Medications Medication Brand Name Start Date Product Form Dose Route Admi nistrative Instructions Pharmacy Instructions Status Indications Reaction Description Data Source(s) Triamcinolone Acetonide 1 MG/ML Topical Cream Triamcinolone Acetonide 03/23/2021 12:00:00 AM EDT active [facility] ([facility]) Doxycycline Monohydrate 100 MG Oral Capsule Doxycycline [place] hydrate 03/23/2021 12:00:00 AM EDT ORAL active [facility] ([facility]) No Active Medications 03/23/2021 12:00:00 AM EDT completed [facility] ([facility]) Docusate Sodium 100 MG Oral Capsule [Colace] Colace 12:00:00 AM EDT ORAL active [facility] ( [facility]) WHEAT DEXTRIN 3500 MG Oral Powder [Benefiber] Benefiber 02/24/2021 12:00:00 AM EDT active [facility] ([facility]) POLYETHYLENE GLYCOL 3350 142 MG/ML Oral Solution [Miralax] M iralax 02/24/2021 12:00:00 AM EDT active [facility] ([facility]) Bisacodyl 5 MG Delayed Release Oral Tablet [Dulcolax] Dulcol ax 02/24/2021 12:00:00 AM EDT active [facility] ([facility]) Insurance Providers Payer name Policy type / Coverage type Policy ID Covered republican ID Covered republican's relationship to gibson Policy [place] Plan Information [facility] [id number] 16 [id number] [facility] ACTIVE DUTY [id number] SP [id number] [facility] HUMANA - [place] [id number] 18 [id number] [facility] [place] [id number] 18 [id number] [facility] [place] [id number] 18 [id number] [facility] CLAIMS [place] -O/P [id number] 18 [id number] [facility] [place] [id number] 18 [id number] [facility] [place] [id number] 18 [id number] [facility] [id number] Self [id number] Problems, Conditions, and Diagnoses Code Display Name Description Problem Type Effective Dates Data Source(s) L68316 Bunion of left foot Bunion of left foot Diagnosis 0 05/03/2021 06:30:00 AM EDT [facility] [id number] Pain in left foot Pain in left foot Diagnosis 05/02/2021 09:40:00 AM EDT [facility] Z800 Family history of malignant neoplasm of digestive organs Family history of malignant neoplasm of digestive organs Diagnosis 03/20[facility] 08:45:[facility] Hemorrhage of anus and rectum Hemorrhage of anus and r ectum Diagnosis 03/20/2021 08:45:00 AM EDT [facility] K5900 Constipation, unspecified Constipation, unspecified Di agnosis 03/20/2021 08:45:00 AM EDT [facility] K648 Other hemorrhoids Other hemorrhoids Diagnosis 03/20/2021 08:45:00 AM T [facility] [id number] Encounter for other preprocedural examin ation Encounter for other preprocedural examination Diagnosis 03/09/2021 03:35:00 PM EDT [facility] Q24502 Nicotine dependence, unspecified, uncomp licated Nicotine dependence, unspecified, uncomplicated Diagnosis 11/30/2020 08:00:00 AM EDT [facility] M2041 Other hammer toe(s) (acquired), right fo ot Other hammer toe(s) (acquired), right foot Diagnosis 11/30/2020 08:00:00 AM [facility] H34194 Bunionette of right foot Bunionette of right foot Diag nosis 11/30/2020 08:00:00 AM [facility] [id number] Bunion of right foot Bunion of right foot Diagnosis 11/30/2020 08:00:00 AM [facility] Z1152 ENCOUNTER FOR SCREENING FOR COVID-19 ENCOUNTER F OR SCREENING FOR COVID-19 Diagnosis 11/29/2020 07:18:00 AM T [facility] N62 Hypertrophy of breast Hypertrophy of breast Diagnosis 05/20/2020 09:01:00 AM [facility] Surgeries/Procedures Procedure Description Date Indications Data Source(s) OFFICE OUTPATIENT NEW 30 MINUTES 03/23/2021 [facility] OFFICE OUTPATIENT VISIT 15 MINUTES 02/24/2021 12:00:00 AM EDT [facility] ([facility]) Results ID Date Data Source [id number] 06/21/2021 09:35:00 AM EST [facility] Name Value Range Interpretation Code Description Data Jillian rce(s) Supporting Document(s) SARS coronavirus 2 RNA Not Detected [facility] [place] This lab was ordered by [facility] and reported by [facility]. ID Date Data Source [id number] 03/15/2021 11:13:00 AM EDT [facility] Name Value Range Interpretation Code Description Data Jillian rce(s) Supporting Document(s) SARS coronavirus 2 RNA Not Detected [facility] [place] This lab was ordered by [facility] and reported by [facility]. ID Date Data Source [id number] 05/21/2020 08:26:00 PM EDT [facility] Name Value Range Interpretation Code Description Data Jillian rce(s) Supporting Document(s) Testosterone [Mass/volume] in Serum or Plasma 418 ng/dL [id number] [facility] Adult male reference interval is based o n a population ofhealthy nonobese males (BMI <30) between 19 and 39 years old.Margarita, et.al. JCEM 2017,102;5758-0666. PMID: [id number]. Testosterone Free [Mass/volume] in Serum or Plasma 18.0 pg/mL 9.3-26. 5 [facility] ID Date Data Source [id number] 05/21/2020 08:15:00 PM EDT [facility] Name Value Range Interpretation Code Description Data Jillian rce(s) Supporting Document(s) Choriogonadotropin.intact+Beta subunit [Units/volume] in Serum or Plasma <1 mIU/mL 0-3 [facility] ECLIA methodology ID Date Data Source [id number] 05/21/2020 08:14:00 PM EDT [facility] Value Range Interpretation Code Description Data Jillian rce(s) Supporting Document(s) Lutropin [Units/volume] in Serum or Plasma 2.9 mIU/mL 1.7-8.6 [facility] ID Date Data Source [id number] 05/21/2020 08:14:00 PM EDT [facility] Name Value Range Interpretation Code Description Data Jillian rce(s) Supporting Document(s) Estradiol (E2) [Mass/volume] in Serum or Plasma 27.2 pg/mL 7.6-42.6 [facility] ECLIA methodology Procedure Social History Code Duration Value Status Description Data Source(s ) Smoking 03/23/2021 12:00:00 AM EDT Patient has never smoked co mpleted Patient has never [facility] Vital Signs ID Date Data Source UNK Name Value Range Interpretation Code Description Data Source(s) Systolic blood pressure 119 mm[Hg] 119 mm[Hg] [facility] ([facility]) Diastolic blood pressure 80 mm[Hg] 80 mm[Hg] [facility] ([facility]) Heart rate 88 /min 88 /min [facility] ([facility], [facility]) Respiratory rate 14 /min 14 /min [facility] ( [facility]) Oxygen saturation in Arterial blood by Pulse oximetry 98 % 98 % [facility] ([facility]) Body temperature 97.6 [degF] 97.6 [degF] [facility] ([facility]) Body weight 175.00 [lb_av] 175.00 [lb_av] [facility] ([facility]) Body height 68 [in_i] 68 [in_i] [facility] ([facility]) 5'8" Body mass index (BMI) [Ratio] 26.6 kg/m2 26.6 k g/m2 [facility] ([facility]) Systolic blood pressure 146 mm[Hg] 146 mm[Hg] [facility] ([facility]) Body height 68 [in_i] 68 [in_i] [facility] ([facility]) 5'8" Body mass index (BMI) [Ratio] 28.1 kg/m2 28.1 k g/m2 [facility] ([facility]) Body surface area Derived from formula 1.98 m2 1.98 m2 [facility] ([facility]) Diastolic blood pressure 93 mm[Hg] 93 mm[Hg] [facility] ([facility]) Heart rate 68 /min 68 /min [facility] ([facility]) Body temperature 98.3 [degF] 98.3 [degF] [facility] ([facility]) Respiratory rate 14 /min 14 /min [facility] ( [facility]) Oxygen saturation in Arterial blood by Pulse oximetry 99 % 99 % [facility] ([facility]) Body weight 185.12 [lb_av] 185.12 [lb_av] [facility] ([facility]) Body weight 83.973 kg 83.973 kg [facility] ([facility]) Body weight 77.112 kg 77.112 kg [facility] ([facility]) Body height 68 [in_i] 68 [in_i] [facility] ([facility]) 5'8" Body temperature 97.8 [degF] 97.8 [degF] [facility] ([facility]) Respiratory rate 16 /min 16 /min [facility] ( [facility]) Heart rate 76 /min 76 /min [facility] ([facility]) Systolic blood pressure 119 mm[Hg] 119 mm[Hg] M [facility] ([facility]) Diastolic blood pressure 76 mm[Hg] 76 mm[Hg] [facility] ([facility]) Body weight 170.00 [lb_av] 170.00 [lb_av] [facility] ([facility]) Body mass index (BMI) [Ratio] 25.8 kg/m2 25.8 k g/m2 [facility] ([facility]) Body surface area Derived from formula 1.91 m2 1.91 m2 [facility] ([facility]) ID Date Data Source [id number] 05/10/2021 10:27:47 AM EDT [facility] Name Value Range Interpretation Code Description Data Source(s) WEIGHT RECORDED 175.00 pounds 175.00 pounds [facility] Height 68 Inches 068 Inches [facility] ID Date Data Source [id number] 05/03/2021 06:43:36 AM EDT [facility] Name Value Range Interpretation Code Description Data Source(s) WEIGHT RECORDED 175.00 pounds 175.00 pounds [facility] Height 68 Inches 068 Inches [facility] ID Date Data Source [id number] 12/02/2020 03:04:42 PM EDT [facility] Name Value Range Interpretation Code Description Data Source(s) WEIGHT RECORDED 170.00 pounds 170.00 pounds [facility] Height 68 Inches 068 Inches [facility]
[2021-07-05] MEDS ORDERED: RABIES VACCINE HUMAN 2.5 INTERNATIONAL UNITS/ML VIAL (90675) IM ONE (07:30)
--- OUTSIDE RECORDS SUMMARY | 2021-07-05 07:39 | CCD ---
Author Author [facility] Address Unknown Phone Unavailable Care Team Providers Care Senior Planning Analyst Name Role Phone Feli STOUT Unavailable Unavailable [...] is protected by Article 27-F of the [facility] Public Health law. If you continue you may have access to information: Regarding HIV / AIDS; Provided by facilities licensed or operated by the [facility] Office of Mental Health; or Provided by the [facility] Office for People With Developmental Disabilities. If such information is present, then the following [facility] mandated warning applies: This information has [...] law may result in a fine or residential sentence or both. A general authorization for the release of medical or other information is NOT sufficient authorization for further disc losure. Allergies and Adverse Reactions Type Description Substance Reaction Status Data Source(s ) No Known Drug Allergies No Known Drug Allergies [facility] No Known Environmental Allergies No Known Environmental Al lergies [facility] No Known Food Allergies No Known Food Allergies [facility] No Known Allergies No Known Allergies [facility] Encounters Encounter Providers Location Date Indications Data Source(s ) Outpatient Attender: JORDAN DAYConsultant: WENDY BECKHAM MD 06/26/2021 07:57:16 AM EST - 06/27/2021 05:50:00 AM [facility] Patient discharged. Outpatient Attender: RENATE Allenant: WENDY HSU MD 05/02/2021 07:52:27 AM EDT - 05/03/2021 09:26:00 AM EDT [facility] Patient discharged. Outpatient Attender: RENATE Allenant: WENDY HSU MD 05/01/2021 12:19:15 PM EDT - 05/02/2021 10:10:00 AM EDT [facility] Patient discharged. Outpatient Attender: ESTELLE DAMON MD 2020 09:49:00 AM EDT - 04/05/2021 09:49:00 AM T [facility] Office Visit Attender: ESTELLE DAMON MD Family Practice 2020 09:45:00 AM EDT [facility] Outpatient Attender: FARAZ maria 03/23/2021 02:35:00 PM EDT [facility] ([facility], [facility]) Outpatient Attender: ESTELLE DAMON MDConsultant: WENDY COOMBS MD 03/17/2021 08:12:21 AM EDT - 03/20/2021 11:00:00 AM EDT [facility] Patient discharged. Outpatient Attender: ESTELLE DAMON MDConsultant: WENDY COOMBS MD 03/08/2021 06:57:47 AM EDT - 03/09/2021 04:04:00 PM EDT [facility] Patient discharged. Outpatient Attender: ESTELLE DAMON MD 2020 09:07:00 AM EDT - 02/24/2021 09:07:00 AM EDT [facility] Outpatient Attender: RENATE STOUTConsultant: WENDY HSU MD 11/29/2020 06:40:11 AM EDT - 11/30/2020 12:31:00 PM EDT [facility] Patient discharged. Outpatient Attender: RENATE Prasadltant: WENDY HSU MD 11/28/2020 07:16:29 AM EDT - 11/29/2020 08:43:00 AM EDT [facility] Patient discharged. Outpatient Attender: ESTELLE DAMON MD 2019 09:01:00 AM EDT - 05/20/2020 09:01:00 AM EDT [facility] Immunizations Vaccine Date Status Description Data Source(s) COVID-19 VACCINE Pfizer 11/10/2020 12:00:00 AM EDT completed [facility] Vaccine Series Complete: YESThis Data wa s Submitted to [facility]. COVID-19 VACCINE Pfizer 10/20/2020 12:00:00 AM EST completed [facility] Vaccine Series Complete: YESThis Data wa s Submitted to [facility] [employer]. Medications Medication Brand Name Start Date Product Form Dose Route Admi nistrative Instructions Pharmacy Instructions Status Indications Reaction Description Data Source(s) Triamcinolone Acetonide 1 MG/ML Topical Cream Triamcinolone Acetonide 03/23/2021 12:00:00 AM EDT active M [facility] ([facility]) Doxycycline Monohydrate 100 MG Oral Capsule Doxycycline Boyle hydrate 03/23/2021 12:00:00 AM EDT ORAL active M [facility] ([facility]) No Active Medications 03/23/2021 12:00:00 AM EDT completed [facility] ([facility]) Docusate Sodium 100 MG Oral Capsule [Colace] Colace 12:00:00 AM EDT ORAL active [facility] ( [facility]) WHEAT DEXTRIN 3500 MG Oral Powder [Benefiber] Benefiber 02/24/2021 12:00:00 AM EDT active [facility] ([facility]) POLYETHYLENE GLYCOL 3350 142 MG/ML Oral Solution [Miralax] M iralax 02/24/2021 12:00:00 AM EDT active [facility] ([facility]) Bisacodyl 5 MG Delayed Release Oral Tablet [Dulcolax] Dulcol ax 02/24/2021 12:00:00 AM EDT active M [facility] ([facility]) Insurance Providers Payer name Policy type / Coverage type Policy ID Covered democrat ID Covered democrat's relationship to gibson Policy Gibson Plan Information [facility] [id number] 16 [id number] [facility] [employer] [id number] SP [id number] [facility] [facility] [id number] 18 [id number] [facility] [place] [id number] 18 [id number] [facility] [place] [id number] 18 [id number] [facility]S [place] -O/P [id number] 18 [id number] [facility] [place] [id number] 18 [id number] [facility] [place] [id number] 18 [id number] [facility] [employer] [id number] Self [id number] Problems, Conditions, and Diagnoses Code Display Name Description Problem Type Effective Dates Data Source(s) A36451 Bunion of left foot Bunion of left foot Diagnosis 0 05/03/2021 06:30:00 AM EDT [facility] [id number] Pain in left foot Pain in left foot Diagnosis 05/02/2021 09:40:00 AM EDT [facility] Z800 Family history of malignant neoplasm of digestive organs Family history of malignant neoplasm of digestive organs Diagnosis 03/20[facility]2021 08:45:[facility] Hemorrhage of anus and rectum Hemorrhage of anus and r ectum Diagnosis 03/20/2021 08:45:00 AM EDT [facility] K5900 Constipation, unspecified Constipation, unspecified Di agnosis 03/20/2021 08:45:00 AM EDT [facility] K648 Other hemorrhoids Other hemorrhoids Diagnosis 03/20/2021 08:45:00 AM T [facility] [id number] Encounter for other preprocedural examin ation Encounter for other preprocedural examination Diagnosis 03/09/2021 03:35:00 PM EDT [facility] I01348 Nicotine dependence, unspecified, uncomp licated Nicotine dependence, unspecified, uncomplicated Diagnosis 11/30/2020 08:00:00 AM EDT [facility] M2041 Other hammer toe(s) (acquired), right fo ot Other hammer toe(s) (acquired), right foot Diagnosis 11/30/2020 08:00:00 AM [facility] [id number] Bunionette of right foot Bunionette of right foot Diag nosis 11/30/2020 08:00:00 AM [facility] D11537 Bunion of right foot Bunion of right foot Diagnosis 11/30/2020 08:00:00 AM [facility] Z1152 ENCOUNTER FOR SCREENING FOR COVID-19 ENCOUNTER F OR SCREENING FOR COVID-19 Diagnosis 11/29/2020 07:18:00 AM T [facility] N62 Hypertrophy of breast Hypertrophy of breast Diagnosis 05/20/2020 09:01:00 AM [facility] Surgeries/Procedures Procedure Description Date Indications Data Source(s) OFFICE OUTPATIENT NEW 30 MINUTES 03/23/2021 [facility] OFFICE OUTPATIENT VISIT 15 MINUTES 02/24/2021 12:00:00 AM EDT [facility] ([facility]) Results ID Date Data Source [id number] 06/21/2021 09:35:00 AM EST [facility] Name Value Range Interpretation Code Description Data Jillian rce(s) Supporting Document(s) SARS coronavirus 2 RNA Not Detected [facility] [place] This lab was ordered by [facility] and reported by [facility]. ID Date Data Source [id number] 03/15/2021 11:13:00 AM EDT [facility] Name Value Range Interpretation Code Description Data Jillian rce(s) Supporting Document(s) SARS coronavirus 2 RNA Not Detected [facility] [place] This lab was ordered by [facility] and reported by [facility]. ID Date Data Source [id number] 05/21/2020 08:26:00 PM EDT [facility] Name Value Range Interpretation Code Description Data Jillian rce(s) Supporting Document(s) Testosterone [Mass/volume] in Serum or Plasma 418 ng/dL [id number] [facility] Adult male reference interval is based o n a population ofhealthy nonobese males (BMI <30) between 19 and 39 years old.Margarita, et.al. JCEM 2017,102;9913-8082. PMID: [id number]. Testosterone Free [Mass/volume] in Serum or Plasma 18.0 pg/mL 9.3-26. 5 [facility] ID Date Data Source [id number] 05/21/2020 08:15:00 PM EDT [facility] Name Value Range Interpretation Code Description Data Jillian rce(s) Supporting Document(s) Choriogonadotropin.intact+Beta subunit [Units/volume] in Serum or Plasma <1 mIU/mL 0-3 [facility]z ECLIA methodology ID Date Data Source [id number] 05/21/2020 08:14:00 PM EDT [facility] Value Range Interpretation Code Description Data Jillian rce(s) Supporting Document(s) Lutropin [Units/volume] in Serum or Plasma 2.9 mIU/mL 1.7-8.6 [facility] ID Date Data Source [id number] 05/21/2020 08:14:00 PM EDT [facility] Name Value Range Interpretation Code Description Data Jillian rce(s) Supporting Document(s) Estradiol (E2) [Mass/volume] in Serum or Plasma 27.2 pg/mL 7.6-42.6 [facility] ECLIA methodology Procedure Social History Code Duration Value Status Description Data Source(s ) Smoking 03/23/2021 12:00:00 AM EDT Patient has never smoked co mpleted Patient has never smoked [facility] ([facility]) Vital Signs ID Date Data Source UNK Name Value Range Interpretation Code Description Data Source(s) Systolic blood pressure 119 mm[Hg] 119 mm[Hg] M [facility] ([facility]) Diastolic blood pressure 80 mm[Hg] 80 mm[Hg] [facility] ([facility]) Heart rate 88 /min 88 /min [facility] ([facility], [facility]) Respiratory rate 14 /min 14 /min [facility] ( [facility]) Oxygen saturation in Arterial blood by Pulse oximetry 98 % 98 % [facility] ([facility]) Body temperature 97.6 [degF] 97.6 [degF] [facility] ([facility]) Body weight 175.00 [lb_av] 175.00 [lb_av] [facility] ([facility], [facility]) Body height 68 [in_i] 68 [in_i] [facility] ([facility]) 5'8" Body mass index (BMI) [Ratio] 26.6 kg/m2 26.6 k g/m2 [facility] ([facility]) Systolic blood pressure 146 mm[Hg] 146 mm[Hg] M [facility] ([facility]) Diastolic blood pressure 93 mm[Hg] 93 mm[Hg] [facility] ([facility]) Heart rate 68 /min 68 /min [facility] ([facility]) Body temperature 98.3 [degF] 98.3 [degF] [facility] ([facility]) Respiratory rate 14 /min 14 /min [facility] ( [facility]) Oxygen saturation in Arterial blood by Pulse oximetry 99 % 99 % [facility] ([facility]) Body weight 185.12 [lb_av] 185.12 [lb_av] [facility] T ([facility]) Body weight 83.973 kg 83.973 kg [facility] ([facility]) Body height 68 [in_i] 68 [in_i] [facility] ([facility]) 5'8" Body mass index (BMI) [Ratio] 28.1 kg/m2 28.1 k g/m2 [facility] ([facility]) Body surface area Derived from formula 1.98 m2 1.98 m2 [facility] ([facility]) Body weight 77.112 kg 77.112 kg [facility] ([facility]) Body temperature 97.8 [degF] 97.8 [degF] [facility] ([facility]) Respiratory rate 16 /min 16 /min [facility] ( [facility]) Heart rate 76 /min 76 /min [facility] ([facility]) Systolic blood pressure 119 mm[Hg] 119 mm[Hg] M [facility] ([facility]) Diastolic blood pressure 76 mm[Hg] 76 mm[Hg] [facility] ([facility]) Body weight 170.00 [lb_av] 170.00 [lb_av] [facility] ([facility]) Body mass index (BMI) [Ratio] 25.8 kg/m2 25.8 k g/m2 [facility] ([facility]) Body height 68 [in_i] 68 [in_i] [facility] ([facility]) 5'8" Body surface area Derived from formula 1.91 m2 1.91 m2 [facility] ([facility]) ID Date Data Source [id number] 05/10/2021 10:27:47 AM EDT [facility] Name Value Range Interpretation Code Description Data Source(s) WEIGHT RECORDED 175.00 pounds 175.00 pounds [facility] Height 68 Inches 068 Inches [facility] ID Date Data Source [id number] 05/03/2021 06:43:36 AM EDT [facility] Name Value Range Interpretation Code Description Data Source(s) WEIGHT RECORDED 175.00 pounds 175.00 pounds [facility] Height 68 Inches 068 Inches [facility] ID Date Data Source [id number] 12/02/2020 03:04:42 PM EDT [facility] Name Value Range Interpretation Code Description Data Source(s) WEIGHT RECORDED 170.00 pounds 170.00 pounds [facility] Height 68 Inches 068 Inches [facility]
[2021-07-05 08:14] VITALS: BP 137/84
== END 2021-07-05 08:15 | disposition home or self-care (01) ==
LOC: M ED 07:17
DX: Z23 Encounter for immunization (principal); Z20.3 Contact with and (suspected) exposure to rabies

== ENCOUNTER 2021-07-09 13:37 | Emergency (ER) | payer OTHER ==
[~2021-07-09] VITALS: Ht 172.7 cm; Wt 77.3 kg
[2021-07-09 13:40] VITALS: BP 142/86
[2021-07-09] MEDS ORDERED: RABIES VACCINE HUMAN 2.5 INTERNATIONAL UNITS/ML VIAL (90675) IM ONE (13:55)
== END 2021-07-09 14:01 | disposition home or self-care (01) ==
LOC: M ED 13:37
DX: Z23 Encounter for immunization (principal); Z20.3 Contact with and (suspected) exposure to rabies

== ENCOUNTER 2021-07-16 09:00 | Emergency (ER) | payer OTHER ==
[~2021-07-16] VITALS: Ht 172.7 cm; Wt 87.3 kg
--- OUTSIDE RECORDS SUMMARY | 2021-07-16 09:05 | CCD ---
Author Author [facility] Address Unknown Phone Unavailable Care Team Providers Care Cafeteria Team Leader Name Role Phone Feli STOUT Unavailable Unavailable [...] C ESTELLE MD Unavailable Unavailable ZULICK, C ESTELEL MD Unavailable Unavailable ZULICK, C ESTELLE MD [...] is protected by Article 27-F of the [facility] Public Health law. If you continue you may have access to information: Regarding HIV / AIDS; Provided by facilities licensed or operated by the [facility] Office of Mental Health; or Provided by the [facility] Office for People With Developmental Disabilities. If such information is present, then the following [facility] mandated warning applies: This information has [...] law may result in a fine or shelter sentence or both. A general authorization for the release of medical or other information is NOT sufficient authorization for further disc losure. Allergies and Adverse Reactions Type Description Substance Reaction Status Data Source(s ) No Known Drug Allergies No Known Drug Allergies [facility] No Known Environmental Allergies No Known Environmental Al lergies [facility] No Known Food Allergies No Known Food Allergies [facility] No Known Allergies No Known Allergies [facility] Encounters Encounter Providers Location Date Indications Data Source(s ) Outpatient Attender: JORDAN DAYConsultant: WENDY BECKHAM MD 06/26/2021 07:57:16 AM EST - 06/27/2021 05:50:00 AM [facility] Patient discharged. Outpatient Attender: RENATE Allenant: WENDY HSU MD 05/02/2021 07:52:27 AM EDT - 05/03/2021 09:26:00 AM EDT [facility] Patient discharged. Outpatient Attender: RENATE Allenant: WENDY HSU MD 05/01/2021 12:19:15 PM EDT - 05/02/2021 10:10:00 AM EDT [facility] Patient discharged. Outpatient Attender: ESTELLE DAMON MD 2020 09:49:00 AM EDT - 04/05/2021 09:49:00 AM T [facility] Office Visit Attender: ESTELLE DAMON MD Family Practice 2020 09:45:00 AM [facility] Outpatient Attender: FARAZ maria 03/23/2021 02:35:00 PM EDT [facility] ([facility], [facility]) Outpatient Attender: ESTELLE DAMON MDConsultant: WENDY COOMBS MD 03/17/2021 08:12:21 AM EDT - 03/20/2021 11:00:00 AM EDT [facility] Patient discharged. Outpatient Attender: ESTELLE DAMON MDConsultant: WENDY COOMBS MD 03/08/2021 06:57:47 AM EDT - 03/09/2021 04:04:00 PM EDT [facility] Patient discharged. Outpatient Attender: ESTELLE ADMON MD 2020 09:07:00 AM EDT - 02/24/2021 09:07:00 AM EDT [facility] Outpatient Attender: RENATE STOUTConsultant: WENDY HSU MD 11/29/2020 06:40:11 AM EDT - 11/30/2020 12:31:00 PM EDT [facility] Patient discharged. Outpatient Attender: RENATE Prasadltant: WENDY HSU MD 11/28/2020 07:16:29 AM EDT - 11/29/2020 08:43:00 AM EDT [facility] Patient discharged. Outpatient Attender: ESTELLE DAMON MD 2019 09:01:00 AM EDT - 05/20/2020 09:01:00 AM EDT [facility] Immunizations Vaccine Date Status Description Data Source(s) COVID-19 VACCINE Pfizer 11/10/2020 12:00:00 AM EDT completed [facility] Vaccine Series Complete: YESThis Data wa s Submitted to [facility] Via [facility]. COVID-19 VACCINE Pfizer 10/20/2020 12:00:00 AM EST completed [facility] Vaccine Series Complete: YESThis Data wa s Submitted to [facility] Via [employer]. Medications Medication Brand Name Start Date Product Form Dose Route Admi nistrative Instructions Pharmacy Instructions Status Indications Reaction Description Data Source(s) Triamcinolone Acetonide 1 MG/ML Topical Cream Triamcinolone Acetonide 03/23/2021 12:00:00 AM EDT active [facility] ([facility]) Doxycycline Monohydrate 100 MG Oral Capsule Doxycycline [place] hydrate 03/23/2021 12:00:00 AM EDT ORAL active [facility] ([facility]) No Active Medications 03/23/2021 12:00:00 AM EDT completed [facility] ([facility]) Docusate Sodium 100 MG Oral Capsule [Colace] Colace 12:00:00 AM EDT ORAL active [facility] ( [facility]) WHEAT DEXTRIN 3500 MG Oral Powder [Benefiber] Benefiber 02/24/2021 12:00:00 AM EDT active [facility] ([facility]) POLYETHYLENE GLYCOL 3350 142 MG/ML Oral Solution [Miralax] M iralax 02/24/2021 12:00:00 AM EDT active [facility] ([facility]) Bisacodyl 5 MG Delayed Release Oral Tablet [Dulcolax] Dulcol ax 02/24/2021 12:00:00 AM EDT active M [facility] ([facility]) Insurance Providers Payer name Policy type / Coverage type Policy ID Covered libertarian ID Covered libertarian's relationship to gibson Policy Gibson Plan Information [facility] [id number] 16 [id number] [facility] [employer] [id number] SP [id number] [facility] [place] [id number] 18 [id number] [facility] [place] [id number] 18 [id number] [facility] [place] [id number] 18 [id number] [facility] [place] -[facility]/P [id number] 18 [id number] [facility] [place] [id number] 18 [id number] [facility] [place] [id number] 18 [id number] [facility] [id number] Self [id number] Problems, Conditions, and Diagnoses Code Display Name Description Problem Type Effective Dates Data Source(s) R0683 Snoring Snoring Diagnosis 06/26/2021 08:00:00 PM ES T [facility] [id number] Bunion of left foot Bunion of left foot Diagnosis 0 05/03/2021 06:30:00 AM [facility] [id number] Pain in left foot Pain in left foot Diagnosis 05/02/2021 09:40:00 AM [facility] Z800 Family history of malignant neoplasm of digestive organs Family history of malignant neoplasm of digestive organs Diagnosis 03/20/2021 08:45:00 A M [facility] K625 Hemorrhage of anus and rectum Hemorrhage of anus and r ectum Diagnosis 03/20/2021 08:45:00 AM [facility] K5900 Constipation, unspecified Constipation, unspecified Di agnosis 03/20/2021 08:45:00 AM [facility] K648 Other hemorrhoids Other hemorrhoids Diagnosis 03/20/2021 08:45:00 AM [facility] [id number] Encounter for other preprocedural examin ation Encounter for other preprocedural examination Diagnosis 03/09/2021 03:35:[address] [facility] [id number] Nicotine dependence, unspecified, uncomp licated Nicotine dependence, unspecified, uncomplicated Diagnosis 11/30/2020 08:00:00 AM [facility] M2041 Other hammer toe(s) (acquired), right fo ot Other hammer toe(s) (acquired), right foot Diagnosis 11/30/2020 08:00:00 AM [facility] R52897 Bunionette of right foot Bunionette of right foot Diag nosis 11/30/2020 08:00:00 AM [facility] Q59614 Bunion of right foot Bunion of right foot Diagnosis 11/30/2020 08:00:00 AM [facility] Z1152 ENCOUNTER FOR SCREENING FOR COVID-19 ENCOUNTER F OR SCREENING FOR COVID-19 Diagnosis 11/29/2020 07:18:00 AM [facility] N62 Hypertrophy of breast Hypertrophy of breast Diagnosis 05/20/2020 09:01:00 AM [facility] Surgeries/Procedures Procedure Description Date Indications Data Source(s) OFFICE OUTPATIENT NEW 30 MINUTES 03/23/2021 12:00:00 A M EDT [facility] ([facility]) OFFICE OUTPATIENT VISIT 15 MINUTES 02/24/2021 12:00:00 AM EDT [facility] ([facility]) Results ID Date Data Source [id number] 07/03/2021 10:09:00 PM EST [facility] Name Value Range Interpretation Code Description Data Jillian rce(s) Supporting Document(s) SARS coronavirus 2 RNA [Presence] in Res piratory specimen by DICK with probe detection NEGATIVE [facility] This lab was ordered by [facility] a nd reported by [facility]. ID Date Data Source [id number] 06/21/2021 09:35:00 AM EST [facility] Name Value Range Interpretation Code Description Data Jillian rce(s) Supporting Document(s) SARS coronavirus 2 RNA Not Detected [facility] This lab was ordered by [facility] and reported by [facility]. ID Date Data Source [id number] 03/15/2021 11:13:00 AM EDT [facility] Name Value Range Interpretation Code Description Data Jillian rce(s) Supporting Document(s) SARS coronavirus 2 RNA Not Detected [facility] [place] This lab was ordered by [facility] and reported by [facility]. ID Date Data Source [id number] 05/21/2020 08:26:00 PM EDT [facility] Name Value Range Interpretation Code Description Data Jillian rce(s) Supporting Document(s) Testosterone [Mass/volume] in Serum or Plasma 418 ng/dL [id number] [facility] Adult male reference interval is based o n a population ofhealthy nonobese males (BMI <30) between 19 and 39 years old.Margarita et.al. JCEM 2017,102;9486-9955. PMID: [id number]. Testosterone Free [Mass/volume] in Serum or Plasma 18.0 pg/mL 9.3-26. 5 [facility] ID Date Data Source [id number] 05/21/2020 08:15:00 PM EDT [facility] Name Value Range Interpretation Code Description Data Jillian rce(s) Supporting Document(s) Choriogonadotropin.intact+Beta subunit [Units/volume] in Serum or Plasma <1 mIU/mL 0-3 [facility] Jez ECLIA methodology ID Date Data Source [id number] 05/21/2020 08:14:00 PM EDT [facility] Name Value Range Interpretation Code Description Data Jillian rce(s) Supporting Document(s) Lutropin [Units/volume] in Serum or Plasma 2.9 mIU/mL 1.7-8.6 [facility] ID Date Data Source [id number] 05/21/2020 08:14:00 PM EDT [facility] Name Value Range Interpretation Code Description Data Jillian rce(s) Supporting Document(s) Estradiol (E2) [Mass/volume] in Serum or Plasma 27.2 pg/mL 7.6-42.6 [facility]z ECLIA methodology Procedure Social History Code Duration Value Status Description Data Source(s ) Smoking 03/23/2021 12:00:00 AM EDT Patient has never smoked co mpleted Patient has never smoked [facility] ([facility], [facility]) Vital Signs ID Date Data Source UNK Name Value Range Interpretation Code Description Data Source(s) Body temperature 96.8 [degF] 96.8 [degF] [facility] ([facility], ) Systolic blood pressure 119 mm[Hg] 119 mm[Hg] [facility]) Diastolic blood pressure 80 mm[Hg] 80 mm[Hg] [facility] ([facility], [facility]) Heart rate 88 /min 88 /min [facility] ([facility], [facility]) Respiratory rate 14 /min 14 /min [facility] ( [facility], [facility]) Oxygen saturation in Arterial blood by Pulse oximetry 98 % 98 % [facility] ([facility], [facility]) Body temperature 97.6 [degF] 97.6 [degF] [facility], [facility]) Body weight 175.00 [lb_av] 175.00 [lb_av] [facility] T ([facility], [facility]) Body height 68 [in_i] 68 [in_i] [facility] 5'8" Body mass index (BMI) [Ratio] 26.6 kg/m2 26.6 k g/m2 [facility] ([facility]) Body height 68 [in_i] 68 [in_i] [facility] ([facility]) 5'8" Body mass index (BMI) [Ratio] 28.1 kg/m2 28.1 k g/m2 [facility] ([facility]) Body surface area Derived from formula 1.98 m2 1.98 m2 [facility] ([facility]) Systolic blood pressure 146 mm[Hg] 146 mm[Hg] M [facility] ([facility]) Diastolic blood pressure 93 mm[Hg] 93 mm[Hg] [facility] ([facility]) Heart rate 68 /min 68 /min [facility] ([facility]) Body temperature 98.3 [degF] 98.3 [degF] [facility] ([facility]) Respiratory rate 14 /min 14 /min [facility] Oxygen saturation in Arterial blood by Pulse oximetry 99 % 99 % [facility] Body weight 185.12 [lb_av] 185.12 [lb_av] [facility] T ([facility]) Body weight 83.973 kg 83.973 kg [facility] ([facility]) Body weight 77.112 kg 77.112 kg [facility] ([facility]) Body height 68 [in_i] 68 [in_i] [facility] ([facility]) 5'8" Systolic blood pressure 119 mm[Hg] 119 mm[Hg] M [facility] ([facility]) Diastolic blood pressure 76 mm[Hg] 76 mm[Hg] [facility] ([facility]) Body weight 170.00 [lb_av] 170.00 [lb_av] [facility] T ([facility]) Body mass index (BMI) [Ratio] 25.8 kg/m2 25.8 k g/m2 [facility] ([facility]) Body surface area Derived from formula 1.91 m2 1.91 m2 [facility] ([facility]) Body temperature 97.8 [degF] 97.8 [degF] [facility] ([facility]) Respiratory rate 16 /min 16 /min [facility] ( [facility]) Heart rate 76 /min 76 /min [facility] ([facility]) ID Date Data Source [id number] 05/10/2021 10:27:47 AM EDT [facility] Name Value Range Interpretation Code Description Data Source(s) WEIGHT RECORDED 175.00 pounds 175.00 pounds [facility] Height 68 Inches 068 Inches [facility] ID Date Data Source [id number] 05/03/2021 06:43:36 AM EDT [facility] Name Value Range Interpretation Code Description Data Source(s) WEIGHT RECORDED 175.00 pounds 175.00 pounds [facility] Height 68 Inches 068 Inches [facility] ID Date Data Source [id number] 12/02/2020 03:04:42 PM EDT [facility] Name Value Range Interpretation Code Description Data Source(s) WEIGHT RECORDED 170.00 pounds 170.00 pounds [facility] Height 68 Inches 068 Inches [facility]
--- OUTSIDE RECORDS SUMMARY | 2021-07-16 09:05 | CCD | Continuity of Care Document ---
Author Author Alexis COTA MD Organization Unknown Address [id number] [place] [address] , [facility] [address] [place] [address] Phone [phone] Care Team Providers Care Manager Sign Name Role Phone [facility] AUTM Unavailable Brian Smith AUTM [phone] Problems Description No Information Available Social History Type Date Description Comments Sex Unknown ETOH Use Rarely Consumed Alcoholic Bevera ges ETOH Use Rarely Tobacco Use Start: Unknown Denies Smoking Recreational Drug Use Denies Drug Use Allergies and adverse reactions Description No Known Drug Allergies Medications Active Medications SIG Qnty Indications Ordering Provide r Date Ondansetron 4mg Tablets Dispers Place 1 Tablet On The Tongue Every 6-8 Hours as Needed For Nausea Or Vomiting Fely Groves D.O. Tonia-bid Probiotic Tablets Take 1 Tablet By Mouth Daily Fely Groves D.O. Amoxicillin/Clavulanate Potassium 875-125mg Tablets Take 1 Tablet By Mouth Twice Daily Viki Spear M.D. Immunizations Description No Information Available Vital Signs Date Vital Result Comment 07/10/2021 3:32pm Body Temperature 96.8 F Results Description No Information Available Procedures Description No Information Available Medical Devices Description No Information Available Encounters Description No Information Available Assessments Description No Information Available Plan of Treatment No Information Available Functional Status Description No Information Available Mental Status Description No Information Available Referrals Description No Information Available
[2021-07-16] MEDS ORDERED: RABIES VACCINE HUMAN 2.5 INTERNATIONAL UNITS/ML VIAL (90675) IM ONE (09:10)
--- OUTSIDE RECORDS SUMMARY | 2021-07-16 09:23 | CCD ---
Author Author [facility] Address Unknown Phone Unavailable Care Team Providers Care Leather Cartridge Belt Maker Name Role Phone Feli STOUT Unavailable Unavailable [...] is protected by Article 27-F of the [facility] Public Health law. If you continue you may have access to information: Regarding HIV / AIDS; Provided by facilities licensed or operated by the [facility] Office of Mental Health; or Provided by the [facility] Office for People With Developmental Disabilities. If such information is present, then the following [facility] mandated warning applies: This information has [...] Known Drug Allergies No Known Drug Allergies [facility] No Known Environmental Allergies No Known Environmental Al lergies [facility] No Known Food Allergies No Known Food Allergies [facility] No Known Allergies No Known Allergies [facility] Encounters Encounter Providers Location Date Indications Data Source(s ) Outpatient Attender: JORDAN DAYConsultant: WENDY BECKHAM MD 06/26/2021 07:57:16 AM EST - 06/27/2021 05:50:00 AM [facility] Patient discharged. Outpatient Attender: RENATE Allenant: WENDY HSU MD 05/02/2021 07:52:27 AM EDT - 05/03/2021 09:26:00 AM EDT [facility] Patient discharged. Outpatient Attender: RENATE Allenant: WENDY HSU MD 05/01/2021 12:19:15 PM EDT - 05/02/2021 10:10:00 AM EDT [facility] Patient discharged. Outpatient Attender: ESTELLE DAMON MD 2020 09:49:00 AM EDT - 04/05/2021 09:49:00 AM T [facility] Office Visit Attender: ESTELLE DAMON MD Family Practice 2020 09:45:00 AM EDT [facility] Outpatient Attender: FARAZ maria 03/23/2021 02:35:00 PM EDT [facility] ([facility], [facility]) Outpatient Attender: ESTELLE DAMON MDConsultant: WENDY COOMBS MD 03/17/2021 08:12:21 AM EDT - 03/20/2021 11:00:00 AM EDT [facility] Patient discharged. Outpatient Attender: ESTELLE DAMON MDConsultant: WENDY COOMBS MD 03/08/2021 06:57:47 AM EDT - 03/09/2021 04:04:00 PM EDT [facility] Patient discharged. Outpatient Attender: ESTELLE DAMON MD 2020 09:07:00 AM EDT - 02/24/2021 09:07:00 AM EDT [facility] Outpatient Attender: RENATE STOUTConsultant: WENDY HSU MD 11/29/2020 06:40:11 AM EDT - 11/30/2020 12:31:00 PM EDT [facility] Patient discharged. Outpatient Attender: RENATE Prasadltant: WENDY HSU MD 11/28/2020 07:16:29 AM EDT - 11/29/2020 08:43:00 AM EDT [facility] Patient discharged. Outpatient Attender: ESTELLE DAMON MD 2019 09:01:00 AM EDT - 05/20/2020 09:01:00 AM EDT [facility] Immunizations Vaccine Date Status Description Data Source(s) COVID-19 VACCINE Pfizer 11/10/2020 12:00:00 AM EDT completed [facility] Vaccine Series Complete: YESThis Data wa s Submitted to [facility] [employer]. COVID-19 VACCINE Pfizer 10/20/2020 12:00:00 AM EST completed [facility] Vaccine Series Complete: YESThis Data wa s Submitted to [facility] [employer]. Medications Medication Brand Name Start Date Product Form Dose Route Admi nistrative Instructions Pharmacy Instructions Status Indications Reaction Description Data Source(s) Triamcinolone Acetonide 1 MG/ML Topical Cream Triamcinolone Acetonide 03/23/2021 12:00:00 AM EDT active [facility] ([facility]) Doxycycline Monohydrate 100 MG Oral Capsule Doxycycline Lynn hydrate 03/23/2021 12:00:00 AM EDT ORAL active [facility] ([facility]) No Active Medications 03/23/2021 12:00:00 AM EDT completed [facility] ([facility]) Docusate Sodium 100 MG Oral Capsule [Colace] Colace 12:00:00 AM EDT ORAL active [facility] ( [facility]) WHEAT DEXTRIN 3500 MG Oral Powder [Benefiber] Benefiber 02/24/2021 12:00:00 AM EDT active [facility] ([facility]) POLYETHYLENE GLYCOL 3350 142 MG/ML Oral Solution [Miralax] M iralax 02/24/2021 12:00:00 AM EDT active [facility] ([facility]) Bisacodyl 5 MG Delayed Release Oral Tablet [Dulcolax] Dulcol ax 02/24/2021 12:00:00 AM EDT active M [facility] ([facility]) Insurance Providers Payer name Policy type / Coverage type Policy ID Covered libertarian ID Covered libertarian's relationship to gibson Policy Gibson Plan Information [facility] [id number] 16 [id number] [facility] ACTIVE DUTY [id number] SP [id number] [facility] [employer] [id number] 18 [id number] [facility] [place] - [place] [id number] 18 [id number] [facility] [place] [id number] 18 [id number] [facility] CLAIMS [place] -O/P [id number] 18 [id number] [facility] [place] [id number] 18 [id number] [facility] [place] [id number] [id number] [facility] Commercial [id number] Self [id number] Problems, Conditions, and Diagnoses Code Display Name Description Problem Type Effective Dates Data Source(s) R0683 Snoring Snoring Diagnosis 06/26/2021 08:00:00 PM ES T [facility] [id number] Bunion of left foot Bunion of left foot Diagnosis 0 05/03/2021 06:30:00 AM [facility] [id number] Pain in left foot Pain in left foot Diagnosis 05/02/2021 09:40:00 AM [facility] Z800 Family history of malignant neoplasm of digestive organs Family history of malignant neoplasm of digestive organs Diagnosis 03/20/2021 08:45:00 A M [facility] K625 Hemorrhage of anus and rectum Hemorrhage of anus and r ectum Diagnosis 03/20/2021 08:45:00 AM [facility] K5900 Constipation, unspecified Constipation, unspecified Di agnosis 03/20/2021 08:45:00 AM [facility] K648 Other hemorrhoids Other hemorrhoids Diagnosis 03/20/2021 08:45:00 AM [facility] [id number] Encounter for other preprocedural examin ation Encounter for other preprocedural examination Diagnosis 03/09/2021 03:35:00 PM [facility] [id number] Nicotine dependence, unspecified, uncomp licated Nicotine dependence, unspecified, uncomplicated Diagnosis 11/30/2020 08:00:00 AM [facility] M2041 Other hammer toe(s) (acquired), right fo ot Other hammer toe(s) (acquired), right foot Diagnosis 11/30/2020 08:00:00 AM [facility] Q05503 Bunionette of right foot Bunionette of right foot Diag nosis 11/30/2020 08:00:00 AM [facility] Y29443 Bunion of right foot Bunion of right foot Diagnosis 11/30/2020 08:00:00 AM [facility] Z1152 ENCOUNTER FOR SCREENING FOR COVID-19 ENCOUNTER F OR SCREENING FOR COVID-19 Diagnosis 11/29/2020 07:18:00 AM [facility] N62 Hypertrophy of breast Hypertrophy of breast Diagnosis 05/20/2020 09:01:00 AM [facility] Surgeries/Procedures Procedure Description Date Indications Data Source(s) OFFICE OUTPATIENT NEW 30 MINUTES 03/23/2021 12:00:00 A M EDT [facility] ([facility]) OFFICE OUTPATIENT VISIT 15 MINUTES 02/24/2021 12:00:00 AM EDT [facility] ([facility]) Results ID Date Data Source [id number] 07/03/2021 10:09:00 PM EST [facility] Name Value Range Interpretation Code Description Data Jillian rce(s) Supporting Document(s) SARS coronavirus 2 RNA [Presence] in Res piratory specimen by DICK with probe detection NEGATIVE [facility] This lab was ordered by [facility] a nd reported by [facility]. ID Date Data Source [id number] 06/21/2021 09:35:00 AM EST [facility] Name Value Range Interpretation Code Description Data Jillian rce(s) Supporting Document(s) SARS coronavirus 2 RNA Not Detected [facility] This lab was ordered by [facility] and reported by [facility]. ID Date Data Source [id number] 03/15/2021 11:13:00 AM EDT [facility] Name Value Range Interpretation Code Description Data Jillian rce(s) Supporting Document(s) SARS coronavirus 2 RNA Not Detected [facility] [place] This lab was ordered by [facility] and reported by [facility]. ID Date Data Source [id number] 05/21/2020 08:26:00 PM EDT [facility] Name Value Range Interpretation Code Description Data Jillian rce(s) Supporting Document(s) Testosterone [Mass/volume] in Serum or Plasma 418 ng/dL [id number] [facility] Adult male reference interval is based o n a population ofhealthy nonobese males (BMI <30) between 19 and 39 years old.Margarita et.al. JCEM 2017,102;8625-1500. PMID: [id number]. Testosterone Free [Mass/volume] in Serum or Plasma 18.0 pg/mL 9.3-26. 5 [facility] ID Date Data Source [id number] 05/21/2020 08:15:00 PM EDT [facility] Name Value Range Interpretation Code Description Data Jillian rce(s) Supporting Document(s) Choriogonadotropin.intact+Beta subunit [Units/volume] in Serum or Plasma <1 mIU/mL 0-3 [facility] Jez ECLIA methodology ID Date Data Source [id number] 05/21/2020 08:14:00 PM EDT [facility] Name Value Range Interpretation Code Description Data Jillian rce(s) Supporting Document(s) Lutropin [Units/volume] in Serum or Plasma 2.9 mIU/mL 1.7-8.6 [facility] ID Date Data Source [id number] 05/21/2020 08:14:00 PM EDT [facility] Name Value Range Interpretation Code Description Data Jillian rce(s) Supporting Document(s) Estradiol (E2) [Mass/volume] in Serum or Plasma 27.2 pg/mL 7.6-42.6 [facility] ECLIA methodology Procedure Social History Code Duration Value Status Description Data Source(s ) Smoking 03/23/2021 12:00:00 AM EDT Patient has never smoked co mpleted Patient has never smoked [facility] ([facility], [facility]) Vital Signs ID Date Data Source UNK Name Value Range Interpretation Code Description Data Source(s) Body temperature 96.8 [degF] 96.8 [degF] [facility] ) Systolic blood pressure 119 mm[Hg] 119 mm[Hg] [facility], [facility]) Diastolic blood pressure 80 mm[Hg] 80 mm[Hg] [facility] ([facility], [facility]) Heart rate 88 /min 88 /min [facility] ([facility], [facility]) Respiratory rate 14 /min 14 /min [facility] ( [facility], [facility]) Oxygen saturation in Arterial blood by Pulse oximetry 98 % 98 % [facility] ([facility], [facility]) Body temperature 97.6 [degF] 97.6 [degF] [facility] ([facility], [facility]) Body weight 175.00 [lb_av] 175.00 [lb_av] [facility] ([facility], [facility]) Body height 68 [in_i] 68 [in_i] [facility] 5'8" Body mass index (BMI) [Ratio] 26.6 kg/m2 26.6 k g/m2 [facility] ([facility], [facility]) Systolic blood pressure 146 mm[Hg] 146 mm[Hg] M [facility] ([facility]) Diastolic blood pressure 93 mm[Hg] 93 mm[Hg] [facility] ([facility]) Heart rate 68 /min 68 /min [facility] ([facility]) Body temperature 98.3 [degF] 98.3 [degF] [facility] ([facility]) Respiratory rate 14 /min 14 /min [facility] ( [facility]) Oxygen saturation in Arterial blood by Pulse oximetry 99 % 99 % [facility] ([facility]) Body weight 185.12 [lb_av] 185.12 [lb_av] [facility] ([facility]) Body weight 83.973 kg 83.973 kg [facility] ([facility]) Body height 68 [in_i] 68 [in_i] [facility] ([facility]) 5'8" Body mass index (BMI) [Ratio] 28.1 kg/m2 28.1 k g/m2 [facility] Body surface area Derived from formula 1.98 m2 1.98 m2 [facility] ([facility]) Body weight 77.112 kg 77.112 kg [facility] ([facility]) Body height 68 [in_i] 68 [in_i] [facility] ([facility]) 5'8" Body temperature 97.8 [degF] 97.8 [degF] [facility] ([facility]) Respiratory rate 16 /min 16 /min [facility] ( [facility]) Heart rate 76 /min 76 /min [facility] ([facility]) Systolic blood pressure 119 mm[Hg] 119 mm[Hg] M [facility] ([facility]) Diastolic blood pressure 76 mm[Hg] 76 mm[Hg] [facility] ([facility]) Body weight 170.00 [lb_av] 170.00 [lb_av] [facility] ([facility]) Body mass index (BMI) [Ratio] 25.8 kg/m2 25.8 k g/m2 [facility] ([facility]) Body surface area Derived from formula 1.91 m2 1.91 m2 [facility] ([facility]) ID Date Data Source [id number] 05/10/2021 10:27:47 AM EDT [facility] Name Value Range Interpretation Code Description Data Source(s) WEIGHT RECORDED 175.00 pounds 175.00 pounds [facility] Height 68 Inches 068 Inches [facility] ID Date Data Source [id number] 05/03/2021 06:43:36 AM EDT [facility] Name Value Range Interpretation Code Description Data Source(s) WEIGHT RECORDED 175.00 pounds 175.00 pounds [facility] Height 68 Inches 068 Inches [facility] ID Date Data Source [id number] 12/02/2020 03:04:42 PM EDT [facility] Name Value Range Interpretation Code Description Data Source(s) WEIGHT RECORDED 170.00 pounds 170.00 pounds [facility] Height 68 Inches 068 Inches [facility]
[2021-07-16 09:41] VITALS: BP 150/90
== END 2021-07-16 09:40 | disposition home or self-care (01) ==
LOC: M ED 09:00
DX: Z23 Encounter for immunization (principal); Z20.3 Contact with and (suspected) exposure to rabies

== ENCOUNTER 2021-09-16 19:43 | Emergency (ER) | payer OTHER ==
[~2021-09-16] VITALS: Ht 172.7 cm; Wt 81.8 kg
[2021-09-16] MEDS ORDERED: IBUP-1022 PO (23:44)
[2021-09-16] MEDS ORDERED: LIDO2SO PO (23:44)
[2021-09-16] MEDS ORDERED: LIDOCAINE VISCOUS 2% SOLN 15ML UDC SS ONE (23:45)
[2021-09-16 23:47] VITALS: BP 134/82
== END 2021-09-16 23:53 | disposition home or self-care (01) ==
LOC: M ED 19:43
DX: J02.9 Acute pharyngitis, unspecified (principal)